=== PATIENT | female | born 2000 | race Caucasian/White ===

== ENCOUNTER → 2019-08-02 17:38 | Outpatient (BNVA) | payer SELFPAY | PROVIDERS: Family Provider Nurse Practitioner Family; Visit Provider Nurse Practitioner Family | DX: R50.9 Fever, unspecified (principal) | CPT/HCPCS: 87804 ==

== ENCOUNTER 2020-08-30 04:34 | Emergency (ER) | payer SELFPAY ==
[2020-08-30 04:45] VITALS: BP 149/98; PULSE 116; RESP 16; TEMP 36.3; O2SAT 99; BMI 29.9
[2020-08-30 04:49] VITALS: PULSE 95
[2020-08-30 04:54] VITALS: PULSE 97; RESP 13; O2SAT 99
[2020-08-30 04:55] VITALS: BP 136/87
--- NOTE | 2020-08-30 05:08 | XR_ITS ---
WS: [id number] Exam: XR foot LT min 3V* [id number] Date/Time of Exam: 08/30/2020 5:15 AM Reason For Exam: injury Findings: The foot was examined in multiple views and reveals no fractures or displacements of bone. No bony a nomalies are noted. The bony elements are in adequate alignment. The joint spaces are smooth and eq uidistant. XR/XR foot LT min 3V* [id number] IMPRESSION: Negative left foot.
--- NOTE | 2020-08-30 05:09 | ED_ITS ---
HPI - Extremity Problem General: Chief complaint: Extremity Problem,Nontraumatic Stated complaint: left foot injury Time Seen by Provider: 08/30/20 04:47 History of Present Illness: HPI Narrative: 19-year-old female who states that she took her foot on a bed rail 3 to 4 days ago. She had initial pain that resolved quickly. She was asymptomatic for 2 to 3 days followed by pain and swelling that started yesterday to the area of the first MTP and just proximal and distal. She awoke with pain this morning, significant enough to make her cry. Tylenol helped relieve some of the pain so that she could get her she wanted to come here for evaluation. MD Complaint: extremity pain and joint pain Onset (ago): day(s) Pain Consistency: constant Location: left and other (foot) Quality: stabbing and aching Radiation: proximal Relieving factors: medication Exacerbating factors: weight bearing Associated symptoms: Deny arthralgias, chest pain, fever(s), rash or short of breath Review of Systems Const: Denies: fever(s) ENMT: Denies: throat pain Card: Denies: chest pain Resp: Denies: dyspnea Skin/Breast: Denies: rash [facility] ED PFSH: Social History (Updated 08/02/19 @ 17:38 by Kirsty Ordoñez LPN) Smoking and tobacco status: current every day smoker Female Reproductive History: Date of last menstrual period: 08/30/20 Physical Exam Const: COMMON NORMALS: no acute distress, patient oriented x3 and healthy appearing HENMT: COMMON NORMALS: normocephalic HEAD & SCALP: normocephalic Eye: COMMON NORMALS: Equal, round and reactive pupils present and EOMs intact bilaterally PUPIL: Yes Equal, round and reactive pupils present Resp: COMMON NORMALS: normal respiratory effort, No use of accessory muscles and clear to auscultation bilaterally AUSCULTATION: clear to auscultation bilaterally Cardio: COMMON NORMALS: regular rate and regular rhythm RATE: regular rate RHYTHM: regular rhythm Extremity: NARRATIVE EXTREMITY EXAM: Exam the left foot reveals significant tenderness over the MTP and just proximal as well as distal. There is a positive grind test as well as pain with any movement of the toe. There is mild swelling noted when compared to the other side. No overt ecchymosis or other rash no ankle joint line tenderness. Neuro: COMMON NORMALS: patient oriented x3 Course Vital Signs: Vital signs: Vital Signs Temperature 97.3 F L 08/30/20 04:45 Pulse Rate 97 08/30/20 04:54 Respiratory Rate 13 08/30/20 04:54 Blood Pressure 136/87 08/30/20 04:55 Pulse Oximetry 99 08/30/20 04:54 MDM - Extremity (Nontraumatic) MDM Narrative: Medical decision making narrative: Straight is negative for fr acture. There is some soft tissue swelling. Difficult to ascertain joint effusion. White blood cell count is 7.8. CRP is only 5.5. Does not appear to be infected. Uric acid level is normal. We will treat with anti- inflammatories, and a postop shoe for a couple of days. Lab Data: Labs: Lab Results 08/30/20 08/30/20 Range/Units 05:20 05:20 WBC 7.8 (4.5-13.0) 10^3/ uL RBC 4.95 (4.1-5.3) 10^6/u L Hgb 14.2 (11.5-15.3) g/dL Hct 43.2 (37.0-47.0) % MCV 87.3 (81-99) fL MCH 28.7 (28.0-34.0) pg MCHC 32.9 (30.0-36.0) g/dL RDW 11.8 L (12.1-15.1) % Plt Count 278 (130-400) 10^3/c mm MPV 9.7 (7.4-10.4) fL Neut % (Auto) 45.4 % Lymph % (Auto) 45.3 % Marin % (Auto) 7.3 % Eos % (Auto) 1.4 % Baso % (Auto) 0.3 % Neut # (Auto) 3.54 (1.8-8.0) 10^3/u L Lymph # (Auto) 3.5 (1.5-6.5) 10^3/u L Marin # (Auto) 0.6 (0.2-0.9) 10^3/u L Eos # (Auto) 0.1 (0.0-0.8) 10^3/u L Baso # (Auto) 0.0 (0.0-0.1) 10^3/u L Nucleated RBC % (a uto) 0 % Nucleated RBCs # 0.0 /100WBC Sodium 139 (136-145) mmol/L Potassium 3.8 (3.5-5.1) mmol/L Chloride 104 (98-107) mmol/L Carbon Dioxide 26 (22-29) mmol/L Anion Gap 12.8 (5-19) BUN 12 (6-20) mg/dL Creatinine 0.7 (0.5-0.9) mg/dL GFR Calculation 106.7 (90-130) mL/min Glucose 88 (65-115) mg/dL Calculated Osmolal ity 287 (285-295) mOsm/k g Uric Acid 4.5 (2.4-5.7) mg/dL Calcium 9.2 (8.5-10.5) mg/dL Total Bilirubin 0.2 (0.15-1.2) mg/dL AST 15 (0-32) U/L ALT 26 (0-33) U/L Alkaline Phosphata se 50 (35-105) IU/L C-Reactive Protein 5.5 H (0.0-4.9) mg/L Total Protein 7.0 (6.6-8.7) g/dL Albumin 4.1 (3.5-5.2) g/dL Globulin 2.9 (1.3-4.6) g/dL Discharge Plan Discharge Patient Disposition: Home Clinical Impression: Contusion of foot, left Qualifiers: Encounter type: initial encounter Qualified Code(s): S90.32XA - Contusion of left foot, initial encounter Condition: Stable Prescriptions: New ketorolac 10 mg tablet 10 mg PO TID PRN (Reason: pain) Qty: 10 RF: 0 Discharge Orders: Discharge ED (Routine); Ordered 08/30/20 Ordered By: Ben Torres Discharge Diet: Advance as tolerated Discharge Activity: Limit activity as instructed Patient Instructions: Foot Contusion (ED) Activity Restrictions/Additional Instructions: You may weight-bear as tolerated in the postoperative shoe until pain begins to improve. Following this, you should wear stiff soled shoes such as a good running shoe or boot for up to a couple of weeks. Follow-up with your physician in 5 days or so for recheck. Medication as directed. Return for fever, worsening swelling despite treatment, worsening pain despite treatment, streaking redness, other concerning symptoms. Coding Level of Care Code ED Litigation Attorney Associate for Chg Fwd Exam Detailed
[2020-08-30 05:25] LABS: Basophils % 0.3 %; Eosinophils # 0.1 10^3/uL (0.0-0.8); Eosinophils % 1.4 %; Hematocrit 43.2 % (37.0-47.0); Hemoglobin 14.2 g/dL (11.5-15.3); Lymphocytes # 3.5 10^3/uL (1.5-6.5); Lymphocytes % 45.3 %; Mean Corpuscular HGB Conc 32.9 g/dL (30.0-36.0); Mean Corpuscular Hemoglobin 28.7 pg (28.0-34.0); Mean Corpuscular Volume 87.3 fL (81-99); Mean Platelet Volume 9.7 fL (7.4-10.4); Monocytes # 0.6 10^3/uL (0.2-0.9); Monocytes % 7.3 %; Neutrophils # 3.54 10^3/uL (1.8-8.0); Neutrophils % 45.4 %; Nucleated Red Blood Cells % 0 %; Platelet Count 278 10^3/cmm (130-400); Red Blood Count 4.95 10^6/uL (4.1-5.3); Red Cell Distribution Width 11.8 % (12.1-15.1); White Blood Count 7.8 10^3/uL (4.5-13.0)
[2020-08-30 05:41] LABS: Alanine Aminotransferase 26 U/L (0-33); Albumin Level 4.1 g/dL (3.5-5.2); Alkaline Phosphatase 50 IU/L (35-105); Anion Gap 12.8 (5-19); Aspartate Amino Transferase 15 U/L (0-32); Blood Urea Nitrogen 12 mg/dL (6-20); C Reactive Protein 5.5 mg/L (0.0-4.9); Calcium 9.2 mg/dL (8.5-10.5); Carbon Dioxide 26 mmol/L (22-29); Chloride 104 mmol/L (98-107); Globulin 2.9 g/dL (1.3-4.6); Glomerular Filtration Rate 106.7 mL/min (90-130); Glucose 88 mg/dL (65-115); Osmolality Calculated 287 mOsm/kg (285-295); Potassium 3.8 mmol/L (3.5-5.1); Sodium 139 mmol/L (136-145); Total Bilirubin 0.2 mg/dL (0.15-1.2); Uric Acid 4.5 mg/dL (2.4-5.7)
[2020-08-30 06:08] LABS: Erythrocyte Sedimentation Rate 19 mm/hr (0-15)
[2020-08-30] MEDS: dexamethasone 4 mg Tablet 10 MG PO (06:13)
[2020-08-30] MEDS: oxyCODONE-APAP 5-325 mg Tablet 2 TAB PO (06:13)
[2020-08-30 06:18] VITALS: BP 110/66; PULSE 80; RESP 12; O2SAT 100
== END 2020-08-30 06:20 | disposition home or self-care (01) ==
PROVIDERS: Emergency Provider Emergency Medicine
DX: S90.32XA Contusion of left foot, initial encounter (principal); F17.210 Nicotine dependence, cigarettes, uncomplicated; W22.8XXA Striking against or struck by other objects, initial encounter
CPT/HCPCS: 73630; 80053; 84550; 85025; 85651; 86140; 99283; J8540

== ENCOUNTER → 2021-01-13 11:29 | Outpatient (BNVA) | payer OTHER, SELFPAY | PROVIDERS: Visit Provider Nurse Practitioner Family | DX: Z20.822 Contact with and (suspected) exposure to COVID-19 (principal); J06.9 Acute upper respiratory infection, unspecified | CPT/HCPCS: 87635 ==

== ENCOUNTER → 2021-12-06 13:31 | Outpatient (BNVA) | payer SELFPAY | PROVIDERS: Visit Provider Registered Nurse Neonatal Intensive Care | DX: R10.11 Right upper quadrant pain (principal) | CPT/HCPCS: 81000 ==

== ENCOUNTER 2021-12-22 15:53 | Emergency (ER) | payer SELFPAY ==
[2021-12-22 16:08] VITALS: BP 134/91; PULSE 94; RESP 12; TEMP 37.2; O2SAT 100; BMI 34.1
--- NOTE | 2021-12-22 16:14 | XRR_ITS ---
PROCEDURE INFORMATION: Exam: XR Chest Exam date and time: 12/22/2021 4:22 PM Age: 21 years old Clinical indication: Other: Fb in throat TECHNIQUE: Imaging protocol: Radiologic exam of the chest. Views: 1 view. COMPARISON: CR Chest 1 [place] [id number] 12/15/2017 11:57 PM FINDINGS: Lungs: Unremarkable. No consolidation. Pleural spaces: Unremarkable. No pleural effusion. No pneumothorax. Heart/Mediastinum: Unremarkable. No cardiomegaly. Bones/joints: Unremarkable. XR/XR chest 1V portable [id number] IMPRESSION: No acute findings. Negative for radiodense foreign body.
--- NOTE | 2021-12-22 16:37 | W.ED.GENADLT ---
HPI - General Adult General: Chief complaint: General Medical Stated complaint: fb in throat Time Seen by Provider: 12/22/21 16:14 History of Present Illness: Patient is a 21-year-old female comes to the ED with concern of foreign body in throat. Patient says she ate a small piece of taco meat and feels like it stuck in the back of her throat. She says is just mildly uncomfortable and she went to urgent care to get evaluated and they sent her here to the ED. She is been able to eat and drink normally and keep all food and fluids down. She has not been vomiting and denies any cough, shortness of breath or trouble breathing. Associated symptoms: Deny chest pain, dyspnea, headache(s), nausea, rash, palpitations or vomiting Review of Systems Const: Denies: fever(s), chills or fatigue Eyes: Denies: change in vision or eye discomfort ENMT: Reports: other (Piece of food stuck in back of throat); Denies: throat pain, odynophagia, nasal discharge or nasal congestion Card: Denies: chest pain, palpitations, edema, swelling of feet/ankles, dyspnea on exertion or orthopnea Resp: Denies: dyspnea, productive cough or non-productive cough GI: Denies: abdominal pain, nausea, vomiting, diarrhea, constipation or hematochezia : Denies: flank pain, dysuria or hematuria Musc: Denies: neck pain, back pain or extremity swelling Skin/Breast: Denies: rash or new lesions Neuro: Denies: headache(s), numbness in extremities or weakness in extremities [facility] ED PFSH: Medical History No pertinent family history Surgical History No pertinent past surgical history Social History Smoking and tobacco status: never smoked Alcohol intake: current Alcohol intake frequency: holidays/special occasions only Female Reproductive History: Date of last menstrual period: 08/30/20 Physical Exam Const: COMMON NORMALS: no acute distress, patient oriented x3 and alert GENERAL APPEARANCE: cooperative and comfortable HENMT: COMMON NORMALS: normocephalic HEAD & SCALP: normocephalic MOUTH: Normal oral and palatal mucosa present THROAT: posterior oropharynx normal, uvula midline, abnormal tonsil bilateral hypertrophy 1+ and other (No foreign body or food seen in back of throat.) Neck/C-Spine: COMMON NORMALS: supple GENERAL: Yes normal visual inspection Resp: COMMON NORMALS: normal respiratory effort, No retractions, No use of accessory muscles and clear to auscultation bilaterally AUSCULTATION: clear to auscultation bilaterally Cardio: COMMON NORMALS: regular rate, regular rhythm, S1 normal heart sound present, S2 normal heart sound present, No gallops present (Cardio), No clicks present (Cardio), No murmurs present (Cardio) and Peripheral pulses 2+ throughout RATE: regular rate RHYTHM: regular rhythm HEART SOUNDS: S1 normal heart sound present and S2 normal heart sound present PERIPHERAL PULSES: Peripheral pulses 2+ throughout GI: COMMON NORMALS: Normal to inspection, nondistended, normoactive bowel sounds present, Soft to palpation, non-tender and no masses PALPATION: Yes Soft to palpation : COMMON NORMALS: Yes no CVA tenderness BLADDER/KIDNEY EXAM: Yes no CVA tenderness Back/Pelvis: COMMON NORMALS: no CVA tenderness Extremity: COMMON NORMALS: normal to inspection Neuro: COMMON NORMALS: patient oriented x3 and moves all extremities SENSORIUM/ORIENTATION: Yes alert Skin: GENERAL SKIN EXAM: dry skin Course Vital Signs: Vital signs: Vital Signs Temperature 99 F 12/22/21 16:08 Pulse Rate 94 12/22/21 16:08 Respiratory Rate 12 12/22/21 16:08 Blood Pressure 134/91 12/22/21 16:08 Pulse Oximetry 100 12/22/21 16:08 [facility] - General Adult Medical Decision Making Patient is a 21-year-old female comes to the ED with concern of foreign body in throat. Patient says she ate a small piece of taco meat and feels like it stuck in the back of her throat. She says is just mildly uncomfortable and she went to urgent care to get evaluated and they sent her here to the ED. She is been able to eat and drink normally and keep all food and fluids down. She has not been vomiting and denies any cough, shortness of breath or trouble breathing. Vitals are stable. Patient appears nontoxic and in no acute distress or pain. Exam is benign and no foreign body seen in back of throat. Chest x-ray showed no acute findings and no radiodense foreign bodies seen. Patient was stable for discharge home and given strict return to ED precautions. Follow-up with your PCP in the next week for reevaluation. Patient understood agree with plan. Lab Data Radiology Impressions Chest X-Ray 12/22/21 16:14 IMPRESSION: No acute findings. Negative for radiodense foreign body. Discharge Plan Discharge Patient Disposition: Home Clinical Impression: Normal exam Condition: Stable Prescriptions: No Action control PO 0RF escitalopram oxalate [Lexapro] 5 mg tablet 5 mg PO DAILY Qty: 30 2RF cyclobenzaprine 10 mg tablet 10 mg PO TID PRN (Reason: muscle spasm) Qty: 30 1RF cyclobenzaprine 5 mg tablet 5 mg PO TID PRN (Reason: muscle spasm) Qty: 15 0RF Discharge Orders: Discharge ED (Routine); Ordered 12/22/21 Ordered By: Luis Fernando Scott Discharge Diet: Regular Discharge Activity: Resume usual activity Activity Restrictions/Additional Instructions: Follow-up with medical provider as directed. Return to the ER or your medical provider if condition worsens. Please read and understand discharge instructions. Thank you for choosing [facility] for your healthcare needs today. Please realize this is an emergency room and that we are providing you with a medical screening exam and this may not be complete and all inclusive of all the testing and or work up that you may need to determine your ailment or severity of your illness. It is very important that you follow up as instructed or that you return to the Emergency Department should you have concerns or if your condition changes or worsens in any way. Coding Level of Care Code ED Supervisor Wire [employer]ope Fabrication for Fernando Mercado Exam Comprehensive
== END 2021-12-22 17:33 | disposition home or self-care (01) ==
PROVIDERS: Emergency Provider Physician Assistant
DX: R09.89 Other specified symptoms and signs involving the circulatory and respiratory systems (principal)
CPT/HCPCS: 71045; 99283

== ENCOUNTER 2021-12-23 20:18 | Emergency (ER) | payer SELFPAY ==
[2021-12-23 20:43] VITALS: BP 117/78; PULSE 93; RESP 16; TEMP 37.2; O2SAT 99; BMI 34.1
--- NOTE | 2021-12-23 22:10 | XRR_ITS ---
PROCEDURE INFORMATION: Exam: XR Soft Tissue Neck Exam date and time: 12/23/2021 10:21 PM Age: 21 years old Clinical indication: Dysphagia / difficulty swallowing; Additional info: Possible foreign body. PT was seen 2 days ago for hamburger getting stuck in throat . PT states it still feels like something is stuck in throat. TECHNIQUE: Imaging protocol: Radiologic exam of the soft tissues of the neck. COMPARISON: CTA Head/Neck [id number] 01/26/2015 2:52 PM FINDINGS: Airway: Unremarkable. No abnormal narrowing. Esophagus: AP and lateral views with ingested enteric contrast also submitted. There is no abnormality demonstrated of the cervical esophagus or the proximal thoracic esophagus. No filling defect demonstrated within the contrast. No evidence of obstruction. Soft tissues: No enlargement of the epiglottis. Bones/joints: Unremarkable. XR/XR soft tissue neck [id number] IMPRESSION: Unremarkable study. No foreign body demonstrated.
[2021-12-23] MEDS: barium sulfate 450 mL Oral Susp PO (23:10)
--- NOTE | 2021-12-23 23:52 | W.ED.GENADLT ---
HPI - General Adult General: Chief complaint: General Medical Stated complaint: N/ said feels like something is stuck in throat Time Seen by Provider: 12/23/21 23:30 History of Present Illness: 21-year-old female comes in today for complaints of difficulty swallowing and anxiety. Associated symptoms: Deny chest pain or dyspnea Review of Systems ENMT: Reports: throat pain Card: Denies: chest pain Resp: Denies: dyspnea Psych: Reports: anxiety PFSH ED PFSH: Medical History No pertinent family history Surgical History No pertinent past surgical history Social History Smoking and tobacco status: never smoked Alcohol intake: current Alcohol intake frequency: holidays/special occasions only Female Reproductive History: Date of last menstrual period: 08/30/20 Physical Exam Const: COMMON NORMALS: alert HENMT: HEAD & SCALP: normal to inspection THROAT: posterior oropharynx abnormal cobblestoning Neck/C-Spine: COMMON NORMALS: full ROM Resp: COMMON NORMALS: normal respiratory effort and clear to auscultation bilaterally AUSCULTATION: clear to auscultation bilaterally Cardio: COMMON NORMALS: regular rate and regular rhythm RATE: regular rate RHYTHM: regular rhythm Extremity: COMMON NORMALS: normal to inspection Neuro: SENSORIUM/ORIENTATION: Yes alert Skin: COMMON NORMALS: no rashes or lesions noted GENERAL SKIN EXAM: no rashes or lesions noted Course Vital Signs: Vital signs: Vital Signs Temperature 98 F 12/24/21 00:40 Pulse Rate 66 12/24/21 00:40 Respiratory Rate 18 12/24/21 00:40 Blood Pressure 126/75 12/24/21 00:40 Pulse Oximetry 96 12/24/21 00:40 MDM - General Adult Medical Decision Making 21-year-old female comes in today for complaints of difficulty swallowing and anxiety. Patient 2 days ago felt like she got something stuck in her throat. She was evaluated in the ER and released home. Patient continues to feel that there is something in the back of her throat. On exam posterior pharynx shows postnasal drip with some cobblestoning. Respirations are even lungs are clear to auscultation. Abdomen soft nontender. Patient is able to eat and drink without difficulty. Differential diagnosis includes but not limited to foreign body, anxiety, pharyngitis. I think patient probably has mild upper respiratory infection or allergy symptoms causing a postnasal drip which is giving her the foreign body sensation. Patient also has discomfort due to her untreated anxiety disorder. Family with patient also believe that patient has a untreated anxiety disorder. We will go ahead and give patient 2 mg of Ativan tonight and a GI cocktail for her discomfort. Patient will be started on sertraline 50 mg daily and lorazepam 0.5 mg daily as needed. Case management was requested to assist patient with primary care follow-up and behavioral health counseling if possible. Lab Data Radiology Impressions Soft Tissue Neck X-Ray 12/23/21 22:10 IMPRESSION: Unremarkable study. No foreign body demonstrated. Discharge Plan Discharge Patient Disposition: Home Clinical Impression: Sensation of foreign body in esophagus, Generalized anxiety disorder with panic attacks Condition: Stable Prescriptions: New sertraline 50 mg tablet 50 mg PO DAILY Qty: 30 0RF lorazepam 0.5 mg tablet 0.5 mg PO DAILY PRN (Reason: anxiety) Qty: 10 0RF cetirizine 10 mg tablet 10 mg PO BID Qty: 20 0RF No Action control PO 0RF escitalopram oxalate [Lexapro] 5 mg tablet 5 mg PO DAILY Qty: 30 2RF cyclobenzaprine 10 mg tablet 10 mg PO TID PRN (Reason: muscle spasm) Qty: 30 1RF cyclobenzaprine 5 mg tablet 5 mg PO TID PRN (Reason: muscle spasm) Qty: 15 0RF Discharge Orders: Discharge ED (Routine); Ordered 12/23/21 Ordered By: Jay Gracia Patient Instructions: Generalized Anxiety Disorder (ED) Activity Restrictions/Additional Instructions: Drink plenty of fluids. Takes cetirizine, Zyrtec, 10 mg twice a day for the next few days to help with drainage in the throat. Drink plenty of water. Take sertraline routinely every day. Follow-up with primary care in 1 week for recheck. Use lorazepam as needed for breakthrough anxiety. Return to ER for concerns such as fever greater than 100.4, difficulty breathing, or new issues. Coding Level of Care Code ED Solid Waste Division Supervisor for Fernando Fwd Exam Detailed
[2021-12-24] MEDS: lidocaine 2% viscous 15 ML, aluminum-mag hydrox-simethicon 30 ML, sucralfate oral liq 1 GM PO (00:04)
[2021-12-24] MEDS: LORazepam 2 mg/mL INJ 1 mL IM (00:12)
[2021-12-24 00:40] VITALS: BP 126/75; PULSE 66; RESP 18; TEMP 36.6; O2SAT 96
--- NOTE | 2022-01-20 16:45 | DCPLANNER ---
late entry - disability case manager had message to speak with patient about getting established with a primary care physician. consulting technical manager unable to speak with patient at this time.
== END 2021-12-24 00:44 | disposition home or self-care (01) ==
PROVIDERS: Emergency Provider Nurse Practitioner Family
DX: R09.89 Other specified symptoms and signs involving the circulatory and respiratory systems (principal); F41.1 Generalized anxiety disorder; F41.0 Panic disorder [episodic paroxysmal anxiety]
CPT/HCPCS: 70360; 96372; 99283; J2060

== ENCOUNTER 2021-12-25 14:11 | Emergency (ER) | payer SELFPAY ==
[2021-12-25 14:37] VITALS: BP 121/77; PULSE 91; RESP 16; TEMP 37.2; O2SAT 98; BMI 34.1
--- NOTE | 2021-12-25 14:57 | PC.NURSE ---
Patient reports she was eating a taco 12/21/20 and felt like the meat was hung up in her throat. Patient reports she is able to chew and swallow and is not vomiting or choking. Patient reports occasionally feeling as though it is harder to breathe. Patient describes occasional pain and possible acid reflux feeling.
--- NOTE | 2021-12-25 15:07 | CTR_ITS ---
PROCEDURE INFORMATION: Exam: CT Neck Without Contrast Exam date and time: 12/25/2021 4:35 PM Age: 21 years old Clinical indication: Throat pain; Additional info: Throat pain and swelling/ fb in throat TECHNIQUE: Imaging protocol: Computed tomography of the neck without contrast. Radiation optimization: All CT scans at this facility use at least one of these dose optimization techniques: automated exposure control; mA and/or kV adjustment per patient size (includes targeted exams where dose is matched to clinical indication); or iterative reconstruction. COMPARISON: CR (NECK, ) 12/23/2021 10:21 PM RADIATION DOSE METRICS: Total DLP (mGy-cm): 421.46 FINDINGS: Nasal cavity: Rightward nasal septal deviation. Pharynx: Unremarkable. No significant tonsillar enlargement. Larynx: Unremarkable. Epiglottis is normal. Prevertebral and retropharyngeal spaces: Unremarkable. Salivary glands: Normal. Glands are normal in size. Thyroid: Normal. No enlarged or calcified nodules. Lymph nodes: Unremarkable. No lymphadenopathy. Trachea: Visualized trachea is unremarkable. Lungs: Unremarkable as visualized. Bones/joints: Unremarkable. No acute fracture. Soft tissues: Unremarkable. No significant soft tissue swelling. CT/CT neck wo con [id number] IMPRESSION: No acute finding.
--- NOTE | 2021-12-25 15:14 | W.ED.SKABFB ---
Documented by User: GEORGIA Tay 12/26/21 07:10 HPI - Skin/Abscess/Foreign Bdy General: Chief complaint: Airway/Esophagus Foreign Body Stated complaint: trouble swallowing Time Seen by Provider: 12/25/21 14:37 History of Present Illness: Patient is a 21-year-old female who comes to the ED with trouble swallowing. Patient was seen here in the ED twice now for same complaint within the past 3 days. She says that approximately 3 days ago she had a piece of some taco meat that she felt was stuck in her throat. She denies any trouble breathing, vomiting and she is able to keep p.o. food and fluids down. She says the discomfort and sensation of a foreign body in her throat is still present. Associated symptoms: Deny chills, fever(s), nausea or vomiting Review of Systems Const: Denies: fever(s), chills or fatigue Eyes: Denies: change in vision or eye discomfort ENMT: Reports: odynophagia (Foreign body sensation in throat); Denies: throat pain, nasal discharge or nasal congestion Card: Denies: chest pain, palpitations, edema, swelling of feet/ankles, dyspnea on exertion or orthopnea Resp: Denies: dyspnea, productive cough or non-productive cough GI: Denies: abdominal pain, nausea, vomiting, diarrhea, constipation or hematochezia : Denies: flank pain, dysuria or hematuria Musc: Denies: neck pain, back pain or extremity swelling Skin/Breast: Denies: rash or new lesions Neuro: Denies: headache(s), numbness in extremities or weakness in extremities FORMERLY [facility], [facility]–1983 ED PFSH: Medical History No pertinent family history Surgical History No pertinent past surgical history Social History Smoking and tobacco status: never smoked Alcohol intake: current Alcohol intake frequency: holidays/special occasions only Female Reproductive History: Date of last menstrual period: 12/25/21 Physical Exam Const: COMMON NORMALS: patient oriented x3 HENMT: COMMON NORMALS: normocephalic HEAD & SCALP: normocephalic MOUTH: Normal oral and palatal mucosa present THROAT: posterior oropharynx normal and uvula midline Neck/C-Spine: COMMON NORMALS: supple GENERAL: Yes normal visual inspection Resp: COMMON NORMALS: normal respiratory effort, No retractions, No use of accessory muscles and clear to auscultation bilaterally AUSCULTATION: clear to auscultation bilaterally Cardio: COMMON NORMALS: regular rate, regular rhythm, S1 normal heart sound present, S2 normal heart sound present, No gallops present (Cardio), No clicks present (Cardio), No murmurs present (Cardio) and Peripheral pulses 2+ throughout RATE: regular rate RHYTHM: regular rhythm HEART SOUNDS: S1 normal heart sound present and S2 normal heart sound present PERIPHERAL PULSES: Peripheral pulses 2+ throughout GI: COMMON NORMALS: Normal to inspection, nondistended, normoactive bowel sounds present, Soft to palpation, non-tender and no masses PALPATION: Yes Soft to palpation : COMMON NORMALS: Yes no CVA tenderness BLADDER/KIDNEY EXAM: Yes no CVA tenderness Back/Pelvis: COMMON NORMALS: no CVA tenderness Extremity: COMMON NORMALS: normal to inspection Neuro: COMMON NORMALS: patient oriented x3 and moves all extremities Skin: GENERAL SKIN EXAM: dry skin Course Vital Signs: Vital signs: Vital Signs Temperature 99.0 F 12/25/21 14:37 Pulse Rate 98 12/25/21 18:17 Respiratory Rate 16 12/25/21 18:17 Blood Pressure 126/88 12/25/21 18:17 Pulse Oximetry 97 12/25/21 18:17 MDM - Skin/Abscess/Foreign Bdy Lab Data I reviewed the patient's lab results. : 12/25/21 15:39 12/25/21 15:[address] 12/25/21 15:07 IMPRESSION: No acute finding. Laboratory Results WBC 8.2 10^3/uL (4.0-10.0) 12/25/21 15:39 RBC 5.18 10^6/uL (4.1-5.3) 12/25/21 15:39 Hgb 14.8 g/dL (11.5-15.3) 12/25/21 15:39 Hct 43.4 % (37.0-47.0) 12/25/21 15:39 MCV 83.8 fl (81-99) 12/25/21 15:39 MCH 28.6 pg (28.0-34.0) 12/25/21 15:39 MCHC 34.1 g/dL (30.0-36.0) 12/25/21 15:39 RDW 11.6 % (12.1-15.1) L 12/25/21 15:39 Plt Count 310 10^3/cmm (130-400) 12/25/21 15:39 MPV 9.4 fL (7.4-10.4) 12/25/21 15:39 Neut % (Auto) 72.5 % 12/25/21 15:39 Lymph % (Auto) 22.9 % 12/25/21 15:39 [place] % (Auto) 4.2 % 12/25/21 15:39 Eos % (Auto) 0.1 % 12/25/21 15:39 Baso % (Auto) 0.2 % 12/25/21 15:39 Neut # (Auto) 5.93 10^3/uL (1.8-7.7) 12/25/21 15:39 Lymph # (Auto) 1.9 10^3/uL (0.8-4.8) 12/25/21 15:39 [place] # (Auto) 0.3 10^3/uL (0.2-0.9) 12/25/21 15:39 Eos # (Auto) 0.0 10^3/uL (0.0-0.8) 12/25/21 15:39 Baso # (Auto) 0.0 10^3/uL (0.0-0.1) 12/25/21 15:39 Nucleated RBC % (auto) 0 % 12/25/21 15:39 Nucleated RBCs # 0.0 /100WBC 12/25/21 15:39 Sodium 137 mmol/L (136-145) 12/25/21 15:39 Potassium 4.1 mmol/L (3.5-5.1) 12/25/21 15:39 Chloride 101 mmol/L (98-107) 12/25/21 15:39 Carbon Dioxide 23 mmol/L (22-29) 12/25/21 15:39 Anion Gap 17.1 (5-19) 12/25/21 15:39 BUN 17 mg/dL (6-20) 12/25/21 15:39 Creatinine 0.7 mg/dL (0.5-0.9) 12/25/21 15:39 GFR Calculation 104.6 mL/min (90-130) 12/25/21 15:39 Glucose 98 mg/dL (65-115) 12/25/21 15:39 Calculated Osmolality 286 mOsm/kg (285-295) 12/25/21 15:39 Calcium 9.6 mg/dL (8.5-10.5) 12/25/21 15:39 Total Bilirubin 0.4 mg/dL (0.15-1.2) 12/25/21 15:39 AST 15 U/L (0-32) 12/25/21 15:39 ALT 14 U/L (0-33) 12/25/21 15:39 Alkaline Phosphatase 59 IU/L (35-105) 12/25/21 15:39 Total Protein 8.0 g/dL (6.6-8.7) 12/25/21 15:39 Albumin 4.6 g/dL (3.5-5.2) 12/25/21 15:39 Globulin 3.4 g/dL (1.3-4.6) 12/25/21 15:39 HCG, Qual Negative (Negative) 12/25/21 15:39 Discharge Plan Discharge Patient Disposition: Home Clinical Impression: Globus sensation Condition: Stable Prescriptions: New Vistaril 50 mg capsule 50 mg PO Q8H PRN (Reason: anxiety) Qty: 20 0RF No Action control PO 0RF escitalopram oxalate [Lexapro] 5 mg tablet 5 mg PO DAILY Qty: 30 2RF cyclobenzaprine 10 mg tablet 10 mg PO TID PRN (Reason: muscle spasm) Qty: 30 1RF cyclobenzaprine 5 mg tablet 5 mg PO TID PRN (Reason: muscle spasm) Qty: 15 0RF sertraline 50 mg tablet 50 mg PO DAILY Qty: 30 0RF lorazepam 0.5 mg tablet 0.5 mg PO DAILY PRN (Reason: anxiety) Qty: 10 0RF cetirizine 10 mg tablet 10 mg PO BID Qty: 20 0RF Discharge Orders: Discharge ED (Routine); Ordered 12/25/21 Ordered By: Orin Grimaldo Sign Out Sign Out Data: Patient Sign Out occurred on 12/25/21 at 17:11. Patient's care was discussed, and care was transferred from to GEORGIA Lockhart. Coding Level of Care Code ED Fishing Guide for Chg Fwd Exam Comprehensive Documented by User: GEORGIA Lockhart 12/25/21 18:04 HPI - Skin/Abscess/Foreign Bdy General: Chief complaint: Airway/Esophagus Foreign Body Stated complaint: trouble swallowing Time Seen by Provider: 12/25/21 14:37 FORMERLY [facility], [facility] ED PFSH: Medical History No pertinent family history Surgical History No pertinent past surgical history Social History Smoking and tobacco status: never smoked Alcohol intake: current Alcohol intake frequency: holidays/special occasions only Course Vital Signs: Vital signs: Vital Signs Temperature 99.0 F 12/25/21 14:37 Pulse Rate 98 12/25/21 18:17 Respiratory Rate 16 12/25/21 18:17 Blood Pressure 126/88 12/25/21 18:17 Pulse Oximetry 97 12/25/21 18:17 MDM - Skin/Abscess/Foreign Bdy Medicial Decision Making Care was assumed from Luis Fernando Scott PA-C. Patient is a 21-year-old female who was presented to our ED numerous times as well as evaluation of [place] ED for symptoms of globus sensation. Patient tells me approximately 5 days ago she felt like a small piece of taco meat possibly got stuck in her throat. She states since that episode she has had uncontrollable anxiety related to this sensation. Patient continues to eat and drink normally and is swallowing normally. She complains of this sensation moving around stating sometimes it will affect more her posterior pharynx then often times lower centered around her hyoid region. She has no complaints of difficulty breathing or swallowing. She states she is driving herself crazy due to her fixation with this sensation. Patient had been prescribed Ativan on a previous ED visit but she states this makes her feel out of my mind . She has tried viscous lidocaine on previous visits and states this did not really seem to help. Patient has had blood work, soft tissue XRs, previous provider today ordered a CT of her neck all which was normal. Ultimately at this time I do not know what else to do for patient from an emergency standpoint. Certainly there is no esophageal obstruction. She has no lesion, mass, airway compromise. At this time I will have case management refer her to ENT for possible visualization of oropharynx/larynx and proximal esophagus. I will try and prescribe her something different for the anxiety component. We did discuss possible acid reflux/GERD etiology and she states she will try OTC medications for this. Lab Data : 12/25/21 15:39 12/25/21 15:[address] 12/25/21 15:07
[2021-12-25 15:53] LABS: Basophils % 0.2 %; Eosinophils % 0.1 %; Hematocrit 43.4 % (37.0-47.0); Hemoglobin 14.8 g/dL (11.5-15.3); Lymphocytes # 1.9 10^3/uL (0.8-4.8); Lymphocytes % 22.9 %; Mean Corpuscular HGB Conc 34.1 g/dL (30.0-36.0); Mean Corpuscular Hemoglobin 28.6 pg (28.0-34.0); Mean Corpuscular Volume 83.8 fl (81-99); Mean Platelet Volume 9.4 fL (7.4-10.4); Monocytes # 0.3 10^3/uL (0.2-0.9); Monocytes % 4.2 %; Neutrophils # 5.93 10^3/uL (1.8-7.7); Neutrophils % 72.5 %; Nucleated Red Blood Cells % 0 %; Platelet Count 310 10^3/cmm (130-400); Red Blood Count 5.18 10^6/uL (4.1-5.3); Red Cell Distribution Width 11.6 % (12.1-15.1); White Blood Count 8.2 10^3/uL (4.0-10.0)
[2021-12-25 16:05] LABS: HCG, Serum Qual Negative (Negative)
[2021-12-25 16:14] LABS: Alanine Aminotransferase 14 U/L (0-33); Albumin Level 4.6 g/dL (3.5-5.2); Alkaline Phosphatase 59 IU/L (35-105); Anion Gap 17.1 (5-19); Aspartate Amino Transferase 15 U/L (0-32); Blood Urea Nitrogen 17 mg/dL (6-20); Calcium 9.6 mg/dL (8.5-10.5); Carbon Dioxide 23 mmol/L (22-29); Chloride 101 mmol/L (98-107); Globulin 3.4 g/dL (1.3-4.6); Glomerular Filtration Rate 104.6 mL/min (90-130); Glucose 98 mg/dL (65-115); Osmolality Calculated 286 mOsm/kg (285-295); Potassium 4.1 mmol/L (3.5-5.1); Sodium 137 mmol/L (136-145); Total Bilirubin 0.4 mg/dL (0.15-1.2)
--- NOTE | 2021-12-25 18:15 | PC.NURSE ---
Patient refused IV Benadryl as she did not want to be drowsy as she feels as though she has been drowsy for days. Patient wanted to be able to go get dinner on her way home before becoming too sleepy. Patient reports she has felt very anxious and overwhelmed since this issue has begun. Educated patient on medications and uses.
[2021-12-25 18:17] VITALS: BP 126/88; PULSE 98; RESP 16; O2SAT 97
--- NOTE | 2021-12-26 04:59 | DCPLANNER ---
Addendum entered by Huong South 01/29/22 15:45: Patient had a follow up appointment scheduled for 12.27.[address] Tamez at ENT - patient did attend appointment. Original Note: transitional care manager had message to schedule a follow up appointment for patient with ENT. transitional care manager sent patients information to the front office staff at ENT. Patients information will be printed and reviewed. Clinic will call patient with appointment information.
== END 2021-12-25 18:21 | disposition home or self-care (01) ==
PROVIDERS: Physician Assistant; Emergency Provider Physician Assistant
DX: F45.8 Other somatoform disorders (principal)
CPT/HCPCS: 70490; 80053; 84703; 85025; 99283

== ENCOUNTER 2022-02-02 09:43 | Day surgery (SDC) | payer SELFPAY ==
[2022-01-31 09:10] VITALS: BMI 32.4
[2022-02-02 10:04] VITALS: BP 131/75; PULSE 82; RESP 18; TEMP 36.4; O2SAT 95
[2022-02-02] MEDS: sodium chloride 0.9% 1,000 ML 30 ML IV (10:09)
[2022-02-02 10:12] LABS: OR HCG Qualitative Urine Negative (Negative)
--- NOTE | 2022-02-02 10:18 | ANES.PREANE2 ---
Pre-Anesthetic Assessment Height/Weight: Height 1.65 m Weight 88.451 kg Temp Pulse Resp BP Pulse Ox O2 Del Method 97.5 F L 82 18 131/75 95 02/02/22 10:04 02/02/22 10:04 02/02/22 10:04 02/02/22 10:04 02/02/22 10:04 02/02/22 10:04 Operation Date: 02/02/22 11:15 Proposed Procedures p EGD Dilation W/ Balloon(Not Applicable) - Tutu Arndt DO Familial anesthetic complications: None Was Beta Rudolph taken within 24 hours: N/A Was Clonidine taken within 24 hours: N/A Last intake: Intake Last Liquid Date 02/01/22 Last Liquid Time 21:30 Last Solid Date 02/01/22 Last Solid Time 17:00 Social Tobacco (vapes), No alcohol and No tobacco Exam alert, oriented x 3, clear to auscultation bilaterally and regular rate & rhythm Airway Mallampati: Class I Dentition: full GI Gastroesophageal Reflux Disease dysphagia Neuropsych Depression Anesthetic Plan ASA status: 2 Anesthesia: MAC Risk of > 500 ml blood loss (7ml/kg in children): No Medications/Allergies Home Medications Medication Instructions Recorded Confirmed Last Taken Type fluticasone propionate 50 2 spray intranasal DAILY PRN nasal 12/27/21 02/02/22 02/01/22 Rx mcg/actuation nasal congestion 12 months #16 grams spray,suspension lorazepam 0.5 mg tablet 0.5 mg PO DAILY PRN anxiety #30 01/25/22 02/02/22 01/26/22 Rx tabs prazosin 2 mg capsule 2 mg PO .HS #30 caps 01/30/22 02/02/22 Unknown Rx sertraline 100 mg tablet (Zoloft) 100 mg PO DAILY #30 tabs 01/30/22 02/02/22 02/01/22 Rx pantoprazole 40 mg tablet,delayed 40 mg PO DAILY 01/31/22 02/02/22 02/01/22 History release Allergies Allergy/AdvReac Type Severity Reaction Status Date / Time No Known Allergies Allergy Verified 02/02/22 09:59 Current Medications Generic Name Dose Route Start Last Admin Trade Name Freq PRN Reason Stop Dose Admin Sodium Chloride 1,000 mls @ 30 mls/hr 02/02/22 10:00 07/28/22 10:09 Sodium Chloride 0.9% IV 02/03/22 09:59 30 mls/hr .Q24H DAMI Administration PFSH Anesthesia Medical History Dysphagia No pertinent family history Psychiatric care Surgical History History of dental surgery No pertinent past surgical history Social History (Updated 01/30/22 @ 13:54 by Kennedy Gruber LPN) Smoking and tobacco status: current every day smoker (vapes with nicotine) e-cigarettes E-Cigarette Details: vaporizer device and with nicotine E-cig/vape details: Refill/Four days. Quit status (tobacco): has tried quititng Number of times tried to quit tobacco: 1 Second hand smoke exposure: Yes Smoking risk assessment/counseling performed?: No Alcohol intake: current Alcohol intake frequency: holidays/special occasions only Alcohol type: beer, wine and hard liquor Desire information about alcohol rehabilitation?: No Counseling given: No Desire information about substance/drug rehabilitation?: No Counseling given: No Female Reproductive History Date of last menstrual period: 12/25/21 Data Anesthesia Cardiac Studies: No Data to Display
--- NOTE | 2022-02-02 10:33 | W.PM.OPSUD ---
Surgery/Procedure H&P Update DATE OF PROCEDURE: February 02, 2022 DATE H&P PERFORMED: 01/26/22 CHANGES TO PREVIOUS DOCUMENTATION: None PLANNED PROCEDURE: Operation Date: 02/02/22 11:15 Proposed Procedures p EGD Dilation W/ Balloon(Not Applicable) - Tutu Arndt DO
[2022-02-02 11:55] VITALS: BP 108/62; PULSE 69; RESP 16; TEMP 36.1; O2SAT 96
[2022-02-02 12:04] VITALS: BP 113/69; PULSE 79; RESP 18; O2SAT 98
--- NOTE | 2022-02-02 12:49 | ANE.PACU2 ---
Inpatient post-anesthesia follow up: Airway intact: Yes Vital signs: Temperature 97.0 F Pulse Rate 79 Respiratory Rate 18 Blood Pressure 113/69 Pulse Oximetry 98 Oxygen Delivery Me thod Room Air Oxygen Flow Rate 3.5 Fraction of Inspir ed Oxygen Hydration adequate: Yes Nausea and vomiting: No Pain level: 1 Mental status: Baseline
== END 2022-02-02 12:31 | disposition home or self-care (01) ==
PROVIDERS: Anesthesiology; PCP Family Medicine; Visit Provider Surgery
DX: R13.10 Dysphagia, unspecified (principal); K21.9 Gastro-esophageal reflux disease without esophagitis; J38.7 Other diseases of larynx; F17.290 Nicotine dependence, other tobacco product, uncomplicated
CPT/HCPCS: 43239; 81025; 84703; 88307; J2704; J7030

== ENCOUNTER 2022-02-17 06:58 | Outpatient (CLI) | payer SELFPAY ==
--- NOTE | 2022-02-17 07:15 | US_ITS ---
WS: [id number] Complete ABDOMINAL ULTRASOUND HISTORY: RUQ pain, post-prandial pain, Positive Bateman's. COMPARISON: 12/16/2014 Liver: 16.4 cm in length. Liver is normal size and echogenicity with no mass or intrahepatic dilatati on. Portal Vein: Normal hepatopetal flow with monophasic waveform. Gallbladder: Normally distended with no gallstones, wall thickening or pericholecystic fluid. Gallbladder wall thickness: 0.2 cm. Pancreas: Normal size and echogenicity. CBD: 0.4 cm. Right kidney: 8.8 cm x 4.5 cm x 4.3 cm. No mass, cortical thickening or hydronephrosis. Left kidney: 10.4 cm x 4.3 cm x 6.4 cm. No mass, cortical thickening or hydronephrosis. Spleen: Normal size and echogenicity. Abdominal aorta and IVC are within normal limits. No ascites. US/US abdomen complete* [id number] IMPRESSION: Normal complete abdomen ultrasound.
== END 2022-02-17 06:59 | disposition home or self-care (01) ==
PROVIDERS: PCP Family Medicine; Visit Provider Family Medicine
DX: R10.11 Right upper quadrant pain (principal)
CPT/HCPCS: 76700

== ENCOUNTER → 2022-03-27 17:26 | Outpatient (BNVA) | payer SELFPAY | PROVIDERS: PCP Family Medicine; Visit Provider Family Medicine | DX: F41.0 Panic disorder [episodic paroxysmal anxiety] (principal); F41.1 Generalized anxiety disorder; G89.29 Other chronic pain; H53.9 Unspecified visual disturbance; R19.8 Other specified symptoms and signs involving the digestive system and abdomen; R42 Dizziness and giddiness; R51.9 Headache, unspecified; F33.1 Major depressive disorder, recurrent, moderate | CPT/HCPCS: 80053; 81000; 82533; 84439; 84443; 85025; 85651; 86140 ==

== ENCOUNTER 2022-04-28 12:05 | Outpatient (CLI) | payer SELFPAY ==
--- NOTE | 2022-04-28 12:00 | CT_ITS ---
WS: [id number] CTA HEAD AND NECK TECHNIQUE: Contrast enhanced CTA of the head and neck with coronal and sagittal reformatted images an d maximum intensity projection (MIP) images. NASCET criteria utilized. CLINICAL INFORMATION: Worsening headaches, vision changes, dizziness COMPARISON: January 26, 2015 DLP: 889.[address] scans at [facility] use at least one of these dose optimization techniques: automated e xposure control; mA and/or kV adjustment per patient size (includes targeted exams where dose is matc hed to clinical indication); or iterative reconstruction. FINDINGS: No evidence of intracranial hemorrhage or mass effect. Ventricular system and basal cistern s are patent. Oswald-white differentiation. Mastoid air cells and partially visualized paranasal sinuse s are well aerated. RIGHT: RIGHT common carotid artery is patent. No significant RIGHT ICA stenosis. ICA is patent to the skull base. LEFT: LEFT common carotid artery is patent. No significant LEFT ICA stenosis. LEFT ICA is patent to t he skull base. INTRACRANIAL CTA: Codominant and patent vertebral arteries bilaterally. Basilar artery is patent. Normal vascularity to the RN OBSERVATION territory bilaterally. ICAs are patent at the skull base. Normal vascularity to the DAVID and MCA territories bilaterally. Pat ent anterior communicating artery. No evidence of proximal flow limiting stenosis or aneurysm. CT/CT angio headneck* [id number] IMPRESSION: 1. No significant ICA stenosis bilaterally. 2. Codominant and patent vertebral arteries bilaterally. 3. No evidence of intracranial flow-limiting stenosis or aneurysm.
[2022-04-28] MEDS: iohexol 350 mg/mL 100 mL Btl IV (12:31)
== END 2022-04-28 12:06 | disposition home or self-care (01) ==
LOC: RAD 12:10
PROVIDERS: PCP Family Medicine; Visit Provider Family Medicine
DX: R51.9 Headache, unspecified (principal); H53.9 Unspecified visual disturbance; R42 Dizziness and giddiness; F41.1 Generalized anxiety disorder; G89.29 Other chronic pain
CPT/HCPCS: 70496; 70498

== ENCOUNTER 2022-07-16 17:07 | Emergency (ER) | payer SELFPAY ==
[2022-07-16] VITALS (9 sets, daily range): BP systolic 103–124; BP diastolic 53–80; PULSE 114; RESP 16; TEMP 36.8–37.7; O2SAT 96–100
[2022-07-16 18:44] LABS: Basophils % 0.1 %; Eosinophils % 0.5 %; Hematocrit 46.2 % (37.0-47.0); Hemoglobin 15.2 g/dL (11.5-15.3); Lymphocytes # 1.1 10^3/uL (0.8-4.8); Mean Corpuscular HGB Conc 32.9 g/dL (30.0-36.0); Mean Corpuscular Hemoglobin 28.4 pg (28.0-34.0); Mean Corpuscular Volume 86.2 fl (81-99); Mean Platelet Volume 9.4 fL (7.4-10.4); Monocytes # 0.5 10^3/uL (0.2-0.9); Monocytes % 5.7 %; Neutrophils # 6.87 10^3/uL (1.8-7.7); Neutrophils % 80.5 %; Nucleated Red Blood Cells % 0 %; Platelet Count 267 10^3/cmm (130-400); Red Blood Count 5.36 10^6/uL (4.1-5.3); Red Cell Distribution Width 11.9 % (12.1-15.1); White Blood Count 8.5 10^3/uL (4.0-10.0)
--- NOTE | 2022-07-16 18:53 | ED_ITS ---
HPI - Abdominal Pain General: Chief Complaint: Abdominal Pain Stated Complaint: Right side is in pain Time Seen by Provider: 07/16/22 18:18 Source: patient Mode of arrival: ambulatory Limitations: no limitations History of Present Illness: Patient presents today for evaluation treatment of right upper quadrant and right-sided abdominal pain, nausea, vomiting, and acute on chronic diarrhea. Patient reports noticing the last few days nearly consistent right upper quadrant pain which now radiates down to her right ovary area wrapping around her right flank, and felt through to her right back. She occasionally has some generalized upper abdominal pain but seems to always originate in the right upper quadrant. Patient reports 2 episodes of vomiting today. Patient has had looser stool but states she typically deals with off-and-on constipation/diarrhea. She does feel like it was a somewhat pale color today. Patient denies any known fevers. She has not had any upper respiratory illnesses recently. Patient does have a history of globus sensation with evaluation with EGD through GI without any acute findings. Patient states for the last 5 days she has been on omeprazole and Pepcid but did not take any of her medications today due to her vomiting and nausea. Patient also states she has not hardly ate or drink anything. Patient states she does drink some Dr. Pepper but has cut back significantly recently. She has minimal to no alcohol use and does not use marijuana with any regularity. Chart review shows she has complained of right upper quadrant pain in the past. She told her primary care doctor about it who did refer her on to GI however, during that time she was also experiencing a globus sensation which appears to be what the GI doctor primarily evaluated. She states she has had an ultrasound of her gallbladder but was negative. Associated Symptoms: Reports change in stool character, constipation (off and on chronic), diarrhea (off and on chronic with episodes today), heartburn, nausea and vomiting (x2 today) Related Data: Date of Last Menstrual Period: 03/15/22 Review of Systems General: Reports: 10 or more systems reviewed and unremarkable except in HPI and below GI: Reports: abdominal pain (RUQ/right side), nausea, vomiting (x2 today), heartburn, diarrhea (off and on chronic with episodes today), constipation (off and on chronic), change in stool character and white/light colored stool PFSH ED PFSH: Medical History Dysphagia No pertinent family history Psychiatric care Surgical History History of dental surgery No pertinent past surgical history Social History Smoking and tobacco status: current every day smoker e-cigarettes E-Cigarette Details: vaporizer device and with nicotine E-cig/vape details: Refill/Four days. Quit status (tobacco): has tried quititng Number of times tried to quit tobacco: 1 Second hand smoke exposure: Yes Smoking risk assessment/counseling performed?: No Alcohol intake: current Alcohol intake frequency: holidays/special occasions only Alcohol type: beer, wine and hard liquor Desire information about alcohol rehabilitation?: No Counseling given: No Desire information about substance/drug rehabilitation?: No Counseling given: No Female Reproductive History: Date of last menstrual period: 03/15/22 Spontaneous abortions: No Physical Exam Const: COMMON NORMALS: no acute distress, patient oriented x3 and alert HENMT: COMMON NORMALS: normocephalic, atraumatic, hearing grossly normal bilaterally and moist oral mucous membranes HEAD & SCALP: normocephalic and atraumatic Eye: COMMON NORMALS: Equal, round and reactive pupils present, EOMs intact bilaterally and conjunctivae normal CONJUNCTIVA: Yes conjunctivae normal PUPIL: Yes Equal, round and reactive pupils present Neck/C-Spine: COMMON NORMALS: full ROM and no JVD Lymph: LYMPHATIC: no lymphadenopathy noted Resp: COMMON NORMALS: normal respiratory effort, No retractions, No use of accessory muscles and clear to auscultation bilaterally AUSCULTATION: clear to auscultation bilaterally Cardio: COMMON NORMALS: no JVD, regular rate and regular rhythm RATE: regular rate RHYTHM: regular rhythm GI: OTHER: Normoactive bowel sounds. Patient with tenderness to her right upper abdomen without guarding or rigidity. Abdomen is soft. : COMMON NORMALS: Yes no CVA tenderness BLADDER/KIDNEY EXAM: Yes no CVA tenderness Back/Pelvis: COMMON NORMALS: no CVA tenderness, no thoracic nor lumbar tenderness and thoraco-lumbar ROM normal Extremity: COMMON NORMALS: normal to inspection, full ROM and capillary refill normal Neuro: COMMON NORMALS: patient oriented x3 SENSORIUM/ORIENTATION: Yes alert Psych: COMMON NORMALS: mental status grossly normal, Normal thought process present, cooperative, normal affect and activity/motor behavior normal THOUGHT PROCESS: Normal thought process present Skin: COMMON NORMALS: no rashes or lesions noted and no wounds GENERAL SKIN EXAM: no rashes or lesions noted Course Vital Signs: Vital signs: Vital Signs Temperature 98.2 F 07/16/22 20:30 Pulse Rate 114 H 07/16/22 17:29 Respiratory Rate 16 07/16/22 20:30 Blood Pressure 107/55 07/16/22 22:00 Pulse Oximetry 99 07/16/22 21:30 Oxygen Delivery Me thod 07/16/22 20:30 MDM - Abdominal Pain Medical Decision Making Dates hisPatient presented to the emergency department today for an acute return of right upper quadrant pain. More intense right upper quadrant pain and she has had before coupled with some vomiting. Patient's lab work is otherwise unremarkable. Her urinalysis did show signs of a potential infection however, there is quite a bit of epithelial cells without findings of nitrites or leukocytes and concerns for contamination so I did request a urine culture be performed. We can follow-up and initiate treatment if necessary after culture finalizes. Right upper quadrant ultrasound was negative today. It is still possible patient is having functional pain of her gallbladder and would recommend HIDA scan. Patient also indicates some signs and symptoms that may be related to IBS. Discussed these with the patient and my recommendation to have them evaluated. I did request a follow-up appointment with GI for her to d iscuss recurrent right upper quadrant issues and to discuss any further evaluation which may be warranted. Patient was given medication to help with nausea as it will be extremely important she stay hydrated. Patient was given strict return precautions for change or worsening in her condition. Differential Diagnosis Likely abdominal pain (Cholelithiasis, cholecystitis, IBS, GERD, pud), acute appendicitis, calculus of kidney, constipation, gastroenteritis and pancreatitis Lab Data 07/16/22 18:35 07/16/22 18:35 Labs/Radiology: Radiology Impressions Abdomen Ultrasound 07/16/22 20:07 IMPRESSION: No acute sonographic findings. Laboratory Results WBC 8.5 10^3/uL (4.0-10.0) 07/16/22 18:35 RBC 5.36 10^6/uL (4.1-5.3) H 07/16/22 18:35 Hgb 15.2 g/dL (11.5-15.3) 07/16/22 18:35 Hct 46.2 % (37.0-47.0) 07/16/22 18:35 MCV 86.2 fl (81-99) 07/16/22 18:35 MCH 28.4 pg (28.0-34.0) 07/16/22 18: MCHC 32.9 g/dL (30.0-36.0) 07/16/22 18:35 RDW 11.9 % (12.1-15.1) L 07/16/22 18:35 Plt Count 267 10^3/cmm (130-400) 07/16/22 18: MPV 9.4 fL (7.4-10.4) 07/16/22 18:35 Neut % (Auto) 80.5 % 07/16/22 18:35 Lymph % (Auto) 13.0 % 07/16/22 18:35 [place] % (Auto) 5.7 % 07/16/22 18:35 Eos % (Auto) 0.5 % 07/16/22 18:35 Baso % (Auto) 0.1 % 07/16/22 18:35 Neut # (Auto) 6.87 10^3/uL (1.8-7.7) 07/16/22 18:35 Lymph # (Auto) 1.1 10^3/uL (0.8-4.8) 07/16/22 18:35 [place] # (Auto) 0.5 10^3/uL (0.2-0.9) 07/16/22 18:35 Eos # (Auto) 0.0 10^3/uL (0.0-0.8) 07/16/22 18:35 Baso # (Auto) 0.0 10^3/uL (0.0-0.1) 07/16/22 18: Nucleated RBC % (auto) 0 % 07/16/22 18: Nucleated RBCs # 0.0 /100WBC 07/16/22 18:35 Sodium 136 mmol/L (136-145) 07/16/22 18: Potassium 3.6 mmol/L (3.5-5.1) 07/16/22 18:35 Chloride 99 mmol/L (98-107) 07/16/22 18:35 Carbon Dioxide 25 mmol/L (22-29) 07/16/22 18:35 Anion Gap 15.6 (5-19) 07/16/22 18:35 BUN 18 mg/dL (6-20) 07/16/22 18:35 Creatinine 0.6 mg/dL (0.5-0.9) 07/16/22 18:35 GFR Calculation 125.0 mL/min (90-130) 07/16/22 18:35 Glucose 91 mg/dL (65-115) 07/16/22 18:35 Calculated Osmolality 283 mOsm/kg (285-295) L 07/16/22 18:35 Calcium 10.0 mg/dL (8.5-10.5) 07/16/22 18:35 Total Bilirubin 0.6 mg/dL (0.15-1.2) 07/16/22 18:35 AST 13 U/L (0-32) 07/16/22 18:35 ALT 12 U/L (0-33) 07/16/22 18:35 Alkaline Phosphatase 84 U/L (35-105) 07/16/22 18:35 Total Protein 8.3 g/dL (6.6-8.7) 07/16/22 18:35 Albumin 4.7 g/dL (3.5-5.2) 07/16/22 18:35 Globulin 3.6 g/dL (1.3-4.6) 07/16/22 18:35 Lipase 14 U/L (13-60) 07/16/22 18:35 HCG, Qual Negative (Negative) 07/16/22 19:10 Urine Color Yellow (Yellow) 07/16/22 19:10 Urine Appearance Sl hazy (CLEAR) A 07/16/22 19:10 Urine pH 5 (5-7) 07/16/22 19:10 Ur Specific [place] 1.025 (1.005-1.030) 07/16/22 19:10 Urine Protein Trace (Negative) 07/16/22 19:10 Urine Glucose (UA) Norm (Normal) 07/16/22 19:10 Urine Ketones 1+ (Negative) H 07/16/22 19:10 Urine Blood 2+ (Negative) H 07/16/22 19:10 Urine Nitrate Negative (Negative) 07/16/22 19:10 Urine Bilirubin 1+ (Negative) H 07/16/22 19:10 Urine Urobilinogen 1 mg/dL (Negative) H 07/16/22 19:10 Ur Leukocyte Esterase Negative (Negative) 07/16/22 19:10 Urine RBC 10-15 /hpf (0-2) H 07/16/22 19:10 Urine WBC 0-4 /hpf (0-5) H 07/16/22 19:10 Ur Squamous Epith Cells 25-40 /hpf (0-5) H 07/16/22 19:10 Amorphous Sediment Not Reportable 07/16/22 19:10 Urine Bacteria 3+ /hpf (NONE) H 07/16/22 19:10 Urine Mucus 3+ /hpf 07/16/22 19:10 Discharge Plan Discharge Patient Disposition: Home Clinical Impression: Abdominal pain, acute, right upper quadrant, Nausea & vomiting Condition: Stable Prescriptions: New ondansetron 4 mg tablet,disintegrating 4 mg PO Q8H 5 Days Qty: 15 0RF No Action fluticasone propionate 50 mcg/actuation spray,suspension 2 spray intranasal DAILY PRN (Reason: nasal congestion) 360 Days Qty: 16 12RF Rx Instructions: administer into each nostril sucralfate [Carafate] 1 gram tablet 1 g PO BID Qty: 60 5RF esomeprazole magnesium [Nexium] 20 mg capsule,delayed release(DR/EC) 20 mg PO DAILY Qty: 60 5RF fluoxetine [Prozac] 10 mg capsule 10 mg PO DAILY Qty: 30 2RF Discharge Orders: Discharge ED (Routine); Ordered 07/16/22 Ordered By: Supriya Bains Referrals: Dick Ayala DO [Primary Care Provider] - Discharge Diet: As Directed Discharge Activity: Increase activity as tolerated Patient Instructions: Irritable Bowel Syndrome (ED), HIDA Scan (DC), Abdominal Pain (ED) Activity Restrictions/Additional Instructions: Lab work today revealed no signs of any acute concerns. Urinalysis had some signs of bacteria which would typically be concerning for urinary tract infection however, it does appear the specimen could have been contaminated as there was quite a bit of epithelial cells present so I have requested a urine culture be performed to further evaluate the true bacterial cause. However, the ultrasound does not show any signs of gallstones or gall sludge at this time. As we discussed, it is possible that the problem has to do with function of the gallbladder and you would require an outpatient test called a HIDA scan. Have included some information about a HIDA scan to you to review. It is possible you also deal with irritable bowel syndrome. I have included some information on this as well. I have asked for referral to GI on your behalf for follow-up to further discuss these possibilities as you may benefit from further evaluation and outpatient management. Continue taking your [place] omeprazole, Pepcid, and sucralfate as prescribed for your other GI symptoms. Return to the emergency department if acutely worsening with high fevers, worsening vomiting, change or worsening of your pain, or inability to tolerate fluids leading to concerns for dehydration. Coding Level of Care Code ED Early Childhood Lead Teacher for [facility] Exam Comprehensive
[2022-07-16] MEDS: pantoprazole 40 mg SDV IVP (19:02)
[2022-07-16] MEDS: sodium chloride 0.9% 1,000 ML 999 ML IV (19:03)
[2022-07-16] MEDS: ondansetron 2 mg/ML SDV 2 mL 4 MG IVP (19:03)
[2022-07-16] MEDS: famotidine 20 mg/2 mL INJ IVP (19:03)
[2022-07-16 19:12] LABS: Alanine Aminotransferase 12 U/L (0-33); Albumin Level 4.7 g/dL (3.5-5.2); Alkaline Phosphatase 84 U/L (35-105); Anion Gap 15.6 (5-19); Aspartate Amino Transferase 13 U/L (0-32); Blood Urea Nitrogen 18 mg/dL (6-20); Carbon Dioxide 25 mmol/L (22-29); Chloride 99 mmol/L (98-107); Creatinine Clr Calc Pharmacy 172.0795; Globulin 3.6 g/dL (1.3-4.6); Glucose 91 mg/dL (65-115); Lipase 14 U/L (13-60); Osmolality Calculated 283 mOsm/kg (285-295); Potassium 3.6 mmol/L (3.5-5.1); Sodium 136 mmol/L (136-145); Total Bilirubin 0.6 mg/dL (0.15-1.2); Total Protein 8.3 g/dL (6.6-8.7)
[2022-07-16 19:20] LABS: HCG Qualitative Urine. Negative (Negative)
[2022-07-16 20:05] LABS: Specific Gravity, Urine 1.025 (1.005-1.030); Urine Appearance SL Hazy (CLEAR); Urine Color Yellow (Yellow); pH Urine 5 (5-7)
[2022-07-16 20:06] LABS: Add Urine Culture? No; Add Urine Microscopic? YES; Bacteria Urine 3+ /hpf; Bilirubin Urine 1+ (Negative); Blood Urine 2+ (Negative); Glucose Urine UA Norm (Normal); Ketones Urine 1+ (Negative); Leukocyte Esterase Urine Negative (Negative); Mucus Urine 3+ /hpf; Nitrate Urine Negative (Negative); Protein Urine Trace (Negative); Squamous Epithelial Cell Urine 25-40 /hpf (0-5); Urobilinogen Urine 1 mg/dL (Negative); WBC Urine 0-4 /hpf (0-5)
--- NOTE | 2022-07-16 20:07 | USR_ITS ---
PROCEDURE INFORMATION: Exam: US Abdomen, Limited; Right Upper Quadrant Exam date and time: 07/16/2022 8:18 PM Age: 21 years old Clinical indication: Abdominal pain; Localized; Right upper quadrant (ruq); Additional info: Ruq pain, n/v, gall bladder eval TECHNIQUE: Imaging protocol: Real time ultrasound of the abdomen with image documentation. Limited exam focused on the right upper quadrant. COMPARISON: US abdomen complete* [id number] 02/17/2022 7:12 AM FINDINGS: Liver: Unremarkable. Gallbladder: No gallstones. No gallbladder wall thickening or pericholecystic fluid. 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 Biliary ducts: Normal. No stones. No dilation. Pancreas: Unremarkable as visualized. Right kidney: No mass. No definite stones. No hydronephrosis. US/US abdomen limited [id number] IMPRESSION: No acute sonographic findings.
[2022-07-16] MEDS: lidocaine 2% viscous 15 ML, aluminum-mag hydrox-simethicon 30 ML, sucralfate oral liq 1 GM PO (20:26)
[2022-07-16] MEDS: ketorolac 30 mg/mL INJ IVP (22:08)
[2022-07-16] MEDS: metoclopramide 5 mg/mL SDV 2 mL 10 MG IVP (22:09)
== END 2022-07-16 22:21 | disposition home or self-care (01) ==
PROVIDERS: Emergency Medicine; Emergency Provider Physician Assistant; PCP Family Medicine
DX: R10.11 Right upper quadrant pain (principal); R11.2 Nausea with vomiting, unspecified; F17.290 Nicotine dependence, other tobacco product, uncomplicated
CPT/HCPCS: 76705; 80053; 81001; 81025; 83690; 85025; 87086; 96361; 96374; 96375; 99285; C9113; J1885; J2405; J2765; J3490; J7030

== ENCOUNTER → 2022-09-12 09:36 | Outpatient (BNVA) | payer OTHER, SELFPAY | PROVIDERS: PCP Family Medicine; Visit Provider Psychiatry & Neurology Psychiatry | DX: F41.0 Panic disorder [episodic paroxysmal anxiety] (principal); F41.1 Generalized anxiety disorder | CPT/HCPCS: 80061; 83036 ==

== ENCOUNTER 2022-12-29 21:04 | Emergency (ER) | payer SELFPAY ==
[2022-11-14 15:43] VITALS: BP 147/102; BMI 35.5
[2022-12-29 21:12] VITALS: BP 136/80; PULSE 88; RESP 18; TEMP 36.9; O2SAT 96; BMI 34.3
--- NOTE | 2022-12-29 21:48 | W.ED.NAVMDI ---
HPI - Nausea/Vomiting/Diarrhea General: Chief complaint: Nausea/Vomiting/Diarrhea Stated complaint: abdomen pain,blurry vision Time Seen by Provider: 12/29/22 21:23 Source: patient Mode of arrival: ambulatory Limitations: no limitations History of Present Illness: Patient is a 22-year-old female presents to ED today with a complaint of chronic nausea, vomiting, diarrhea, abdominal pains. Patient states over the past at least 6 months (although looking at documentation it looks like it has been going on longer than this) she has had diffuse abdominal pains, feelings of bloating and gas, nausea and vomiting worse with eating, and rapid onset episodes of diarrhea. She states any form of eating or drinking seems to stimulate symptoms although things like alcohol and pizza do seem to worsen them. She states she was on a PPI and Carafate for many months without any improvement in her symptoms. Patient has underwent EGD by Dr. Arndt was normal. She has had an ultrasound of her gallbladder which was normal. She was recommended to have a HIDA scan at some point but this has not been completed. There has been talk about possible IBS and referral to GI although this has not been completed either. She has completed a 3-week trial of gluten-free diet without improvement. MD elicited complaint: nausea, vomiting, diarrhea and abdominal pain Onset (ago): month(s) Description of diarrhea: mucus and watery Associated nausea: Yes Associated abdominal pain: Yes Location of pain: Diffuse Radiation: diffuse Pain consistency: intermittent Severity: moderate Quality: cramping Exacerbating factors: eating Relieving factors: none Associated symtoms: Reports bloating and nausea; Denies chest pain, dysuria, fatigue, headache(s), malaise, palpitations or syncope Review of Systems Const: Denies: fever(s), chills, body aches, fatigue or malaise ENMT: Reports: other (throat fb sensation) Card: Denies: chest pain, palpitations, irregular heart rhythm, edema, lightheadedness, syncope, pre-syncope, dyspnea on exertion or orthopnea Resp: Denies: dyspnea GI: Reports: abdominal pain, nausea, vomiting, heartburn, diarrhea, bloating and mucus in stool; Denies: hematemesis, dysphagia, rectal pain, hematochezia or melena : Denies: flank pain, dysuria or hematuria Musc: Denies: neck pain, back pain, extremity pain or joint pain Skin/Breast: Denies: rash Neuro: Denies: headache(s), numbness in extremities, weakness in extremities or sensory changes PFSH ED PFSH: Medical History Dysphagia No pertinent family history Psychiatric care Surgical History History of dental surgery No pertinent past surgical history Social History Smoking and tobacco status: current every day smoker e-cigarettes E-Cigarette Details: vaporizer device and with nicotine E-cig/vape details: Refill/Four days. Quit status (tobacco): has tried quititng Number of times tried to quit tobacco: 1 Second hand smoke exposure: Yes Smoking risk assessment/counseling performed?: No Alcohol intake: current Alcohol intake frequency: holidays/special occasions only Alcohol type: beer, wine and hard liquor Desire information about alcohol rehabilitation?: No Counseling given: No Substance/Drug Use: current Substance/Drug use frequency: other Other substance/drug use details: Hasnt used in quite some time. Edible 2 - 3 months ago. Desire information about substance/drug rehabilitation?: No Counseling given: No Female Reproductive History: Spontaneous abortions: No Physical Exam Const: COMMON NORMALS: no acute distress, patient oriented x3, no limitations, alert and well nourished HENMT: COMMON NORMALS: normocephalic and atraumatic HEAD & SCALP: normocephalic and atraumatic Eye: COMMON NORMALS: no scleral icterus Neck/C-Spine: COMMON NORMALS: full ROM, no lymphadenopathy, supple and no meningeal signs Chest: COMMONS NORMALS: normal inspection of the chest and normal palpation of entire chest wall Resp: COMMON NORMALS: normal respiratory effort and clear to auscultation bilaterally AUSCULTATION: clear to auscultation bilaterally Cardio: COMMON NORMALS: regular rate and regular rhythm RATE: regular rate RHYTHM: regular rhythm GI: COMMON NORMALS: Normal to inspection, nondistended, normoactive bowel sounds present, Soft to palpation, No hepatosplenomegaly present and no masses INSPECTION: Yes normal to inspection AUSCULTATION: Yes normoactive bowel sounds PALPATION: Yes Soft to palpation, Yes Tenderness to palpation present (GI) (RUQ, epigastric ), No Guarding due to palpation present (GI), No Rigid due to palpation and Yes No hepatosplenomegaly present : COMMON NORMALS: Yes no CVA tenderness BLADDER/KIDNEY EXAM: Yes no CVA tenderness Back/Pelvis: COMMON NORMALS: no CVA tenderness Extremity: COMMON NORMALS: normal to inspection GENERAL: Yes normal exam except as noted Neuro: COMMON NORMALS: patient oriented x3 SENSORIUM/ORIENTATION: Yes alert MENINGEAL SIGNS: Yes no meningeal signs Skin: COMMON NORMALS: no rashes or lesions noted GENERAL SKIN EXAM: no rashes or lesions noted Course Vital Signs: Vital signs: Vital Signs Temperature 98.4 F 12/29/22 21:12 Pulse Rate 74 12/29/22 23:02 Respiratory Rate 18 12/29/22 21:12 Blood Pressure 129/68 12/29/22 23:02 Pulse Oximetry 97 12/29/22 23:02 Oxygen Delivery Me thod Room Air 12/29/22 23:02 MDM - Nausea/Vomiting/Diarrhea Medical Decision Making Patient's vital signs are stable. Her blood work is completely unremarkable. At this point I do not feel she needs to undergo any type of emergent imaging as symptoms have been present for many many months. I have zero suspicion for emergent etiology. We will have case management try to get her set up with a GI specialist. We did discuss seeing general surgery here for evaluation for HIDA scan. Lab Data 12/29/22 22:06 12/29/22 22:06 Laboratory Results WBC 6.8 10^3/uL (4.0-10.0) 12/29/22 22:06 RBC 5.14 10^6/uL (4.1-5.3) 12/29/22 22:06 Hgb 14.3 g/dL (11.5-15.3) 12/29/22 22:06 Hct 44.9 % (37.0-47.0) 12/29/22 22:06 MCV 87.4 fl (81-99) 12/29/22 22:06 MCH 27.8 pg (28.0-34.0) L 12/29/22 22:06 MCHC 31.8 g/dL (30.0-36.0) 12/29/22 22:06 RDW 12.1 % (12.1-15.1) 12/29/22 22:06 Plt Count 285 10^3/cmm (130-400) 12/29/22 22:06 MPV 9.5 fL (7.4-10.4) 12/29/22 22:06 Neut % (Auto) 51.9 % 12/29/22 22:06 Lymph % (Auto) 41.3 % 12/29/22 22:06 [place] % (Auto) 5.7 % 12/29/22 22:06 Eos % (Auto) 0.6 % 12/29/22 22:06 Baso % (Auto) 0.4 % 12/29/22 22:06 Neut # (Auto) 3.52 10^3/uL (1.8-7.7) 12/29/22 22:06 Lymph # (Auto) 2.8 10^3/uL (0.8-4.8) 12/29/22 22:06 [place] # (Auto) 0.4 10^3/uL (0.2-0.9) 12/29/22 22:06 Eos # (Auto) 0.0 10^3/uL (0.0-0.8) 12/29/22 22:06 Baso # (Auto) 0.0 10^3/uL (0.0-0.1) 12/29/22 22:06 Nucleated RBC % (auto) 0 % 12/29/22 22:06 Nucleated RBCs # 0.0 /100WBC 12/29/22 22:06 Sodium 138 mmol/L (136-145) 12/29/22 22:06 Potassium 4.3 mmol/L (3.5-5.1) 12/29/22 22:06 Chloride 102 mmol/L (98-107) 12/29/22 22:06 Carbon Dioxide 27 mmol/L (22-29) 12/29/22 22:06 Anion Gap 13.3 (5-19) 12/29/22 22:06 BUN 14 mg/dL (6-20) 12/29/22 22:06 Creatinine 0.7 mg/dL (0.5-0.9) 12/29/22 22:06 GFR Calculation 103.7 mL/min (90-130) 12/29/22 22:06 Glucose 90 mg/dL (65-115) 12/29/22 22:06 Calculated Osmolality 286 mOsm/kg (285-295) 12/29/22 22:06 Calcium 9.7 mg/dL (8.5-10.5) 12/29/22 22:06 Total Bilirubin 0.3 mg/dL (0.15-1.2) 12/29/22 22:06 AST 12 U/L (0-32) 12/29/22 22:06 ALT 11 U/L (0-33) 12/29/22 22:06 Alkaline Phosphatase 83 U/L (35-105) 12/29/22 22:06 Total Protein 7.6 g/dL (6.6-8.7) 12/29/22 22:06 Albumin 4.5 g/dL (3.5-5.2) 12/29/22 22:06 Globulin 3.1 g/dL (1.3-4.6) 12/29/22 22:06 Lipase 19 U/L (13-60) 12/29/22 22:06 HCG, Qual Negative (Negative) 12/29/22 22:06 Urine Color Yellow (Yellow) 12/29/22 22:37 Urine Appearance Sl hazy (CLEAR) A 12/29/22 22:37 Urine pH 6 (5-7) 12/29/22 22:37 Ur Specific [place] 1.020 (1.005-1.030) 12/29/22 22:37 Urine Protein Neg (Negative) 12/29/22 22:37 Urine Glucose (UA) Norm (Normal) 12/29/22 22:37 Urine Ketones 1+ (Negative) H 12/29/22 22:37 Urine Blood Neg (Negative) 12/29/22 22:37 Urine Nitrate Negative (Negative) 12/29/22 22:37 Urine Bilirubin Neg (Negative) 12/29/22 22:37 Urine Urobilinogen 1 mg/dL (Negative) H 12/29/22 22:37 Ur Leukocyte Esterase Negative (Negative) 12/29/22 22:37 Urine RBC 0-4 /hpf (0-2) H 12/29/22 22:37 Urine WBC 0-4 /hpf (0-5) H 12/29/22 22:37 Ur Squamous Epith Cells 5-10 /hpf (0-5) H 12/29/22 22:37 Amorphous Sediment 1+ /hpf 12/29/22 22:37 Urine Bacteria Trace /hpf (NONE) 12/29/22 22:37 Urine Mucus Trace /hpf 12/29/22 22:37 H. pylori IgG Antibody Negative (Negative) 12/29/22 22:06 Discharge Plan Discharge Patient Disposition: Home Clinical Impression: Gastrointestinal complaints Condition: Stable Prescriptions: No Action fluticasone propionate 50 mcg/actuation spray,suspension 2 spray intranasal DAILY PRN (Reason: nasal congestion) 360 Days Qty: 16 12RF Rx Instructions: administer into each nostril sucralfate [Carafate] 1 gram tablet 1 g PO BID Qty: 60 5RF esomeprazole magnesium [Nexium] 20 mg capsule,delayed release(DR/EC) 20 mg PO DAILY Qty: 60 5RF Discharge Orders: Discharge ED (Routine); Ordered 12/29/22 Ordered By: Orin Grimaldo Referrals: Dick Ayala DO [Primary Care Provider] - Activity Restrictions/Additional Instructions: As we discussed I will go ahead and make a referral for a GI specialist for further evaluation. We also discussed referring you to general surgery here for evaluation for a possible HIDA scan. If you have not heard from case management by mid next week you may reach out to them by calling the hospital with extension [phone]. Coding Level of Care Code ED Operations Administrative Assistant for Fernando Mercado
[2022-12-29 22:15] LABS: Basophils % 0.4 %; Eosinophils % 0.6 %; Hematocrit 44.9 % (37.0-47.0); Hemoglobin 14.3 g/dL (11.5-15.3); Lymphocytes # 2.8 10^3/uL (0.8-4.8); Lymphocytes % 41.3 %; Mean Corpuscular HGB Conc 31.8 g/dL (30.0-36.0); Mean Corpuscular Hemoglobin 27.8 pg (28.0-34.0); Mean Corpuscular Volume 87.4 fl (81-99); Mean Platelet Volume 9.5 fL (7.4-10.4); Monocytes # 0.4 10^3/uL (0.2-0.9); Monocytes % 5.7 %; Neutrophils # 3.52 10^3/uL (1.8-7.7); Neutrophils % 51.9 %; Nucleated Red Blood Cells % 0 %; Platelet Count 285 10^3/cmm (130-400); Red Blood Count 5.14 10^6/uL (4.1-5.3); Red Cell Distribution Width 12.1 % (12.1-15.1); White Blood Count 6.8 10^3/uL (4.0-10.0)
[2022-12-29 22:26] LABS: HCG, Serum Qual Negative (Negative)
[2022-12-29 22:32] LABS: Alanine Aminotransferase 11 U/L (0-33); Albumin Level 4.5 g/dL (3.5-5.2); Alkaline Phosphatase 83 U/L (35-105); Anion Gap 13.3 (5-19); Aspartate Amino Transferase 12 U/L (0-32); Blood Urea Nitrogen 14 mg/dL (6-20); Calcium 9.7 mg/dL (8.5-10.5); Carbon Dioxide 27 mmol/L (22-29); Chloride 102 mmol/L (98-107); Globulin 3.1 g/dL (1.3-4.6); Glomerular Filtration Rate 103.7 mL/min (90-130); Glucose 90 mg/dL (65-115); Lipase 19 U/L (13-60); Osmolality Calculated 286 mOsm/kg (285-295); Potassium 4.3 mmol/L (3.5-5.1); Sodium 138 mmol/L (136-145); Total Bilirubin 0.3 mg/dL (0.15-1.2); Total Protein 7.6 g/dL (6.6-8.7)
[2022-12-29 22:39] LABS: H. Pylori IgG Antibody Negative (Negative)
[2022-12-29 23:02] VITALS: BP 129/68; PULSE 74; O2SAT 97
[2022-12-29 23:03] LABS: Add Urine Microscopic? YES; Bilirubin Urine Neg (Negative); Blood Urine Neg (Negative); Glucose Urine UA Norm (Normal); Ketones Urine 1+ (Negative); Leukocyte Esterase Urine Negative (Negative); Nitrate Urine Negative (Negative); Protein Urine Neg (Negative); Urine Appearance SL Hazy (CLEAR); Urine Color Yellow (Yellow); Urobilinogen Urine 1 mg/dL (Negative); pH Urine 6 (5-7)
[2022-12-29 23:04] LABS: Add Urine Culture? No; Amorphous Sediment Urine 1+ /hpf; Bacteria Urine TRACE /hpf; Mucus Urine TRACE /hpf; RBC Urine 0-4 /hpf (0-2); WBC Urine 0-4 /hpf (0-5)
[2022-12-29 23:40] VITALS: BP 128/68; PULSE 64; RESP 18; O2SAT 95
--- NOTE | 2022-12-31 06:00 | DCPLANNER ---
trauma manager had message to schedule a follow up appointment for patient with general surgery. trauma manager sent patients information to the front office staff at general surgery. Patients information will be printed and reviewed. Clinic will call patient with appointment information.
--- NOTE | 2023-01-01 16:49 | PC.SOCIAL ---
Addendum entered by Huong South 01/24/23 13:53: Patient had a follow up appointment scheduled at [facility] General surgery with Dr. Arndt - patient did attend appointment. Addendum entered by Huong South 01/19/23 11:26: manager project called [facility] to confirm that patients information had been received. manager project told that patients information had been received, it will be reviewed, and clinic will call patient with appointment information. Original Note: GI Referral Spoke with patient and she does not have a preference between [facility] and [facility], states whoever can see her the soonest. Referral faxed to Agnes DOWN[facility] at this time.
== END 2022-12-29 22:39 | disposition home or self-care (01) ==
PROVIDERS: Emergency Provider Physician Assistant; PCP Family Medicine
DX: R11.2 Nausea with vomiting, unspecified (principal); R19.7 Diarrhea, unspecified; R10.9 Unspecified abdominal pain
CPT/HCPCS: 36415; 80053; 81001; 83690; 84703; 85025; 86677; 99283

== ENCOUNTER → 2023-03-27 18:16 | Outpatient (BNVA) | payer SELFPAY ==
[2022-11-14 15:43] VITALS: BP 147/102; BMI 35.5
== END ==
PROVIDERS: PCP Family Medicine; Visit Provider Registered Nurse Neonatal Intensive Care
DX: J02.9 Acute pharyngitis, unspecified (principal); Z20.2 Contact with and (suspected) exposure to infections with a predominantly sexual mode of transmission
CPT/HCPCS: 87070; 87491; 87591; 87880

== ENCOUNTER → 2023-09-14 11:40 | Outpatient (BNVA) | payer SELFPAY ==
[2022-11-14 15:43] VITALS: BP 147/102; BMI 35.5
== END ==
PROVIDERS: PCP Family Medicine; Visit Provider Emergency Medicine
DX: R23.3 Spontaneous ecchymoses (principal)
CPT/HCPCS: 80053; 83550; 85007; 85027

== ENCOUNTER → 2023-09-18 15:54 | Outpatient (BNVA) | payer SELFPAY ==
[2022-11-14 15:43] VITALS: BP 147/102; BMI 35.5
== END ==
PROVIDERS: PCP Family Medicine; Visit Provider Family Medicine
DX: Z30.9 Encounter for contraceptive management, unspecified (principal)
CPT/HCPCS: 81025

== ENCOUNTER → 2024-09-29 13:55 | Outpatient (BNVA) | payer SELFPAY ==
[2022-11-14 15:43] VITALS: BP 147/102; BMI 35.5
== END ==
PROVIDERS: PCP Family Medicine; Visit Provider Emergency Medicine
DX: B34.9 Viral infection, unspecified (principal)
CPT/HCPCS: 87400

== ENCOUNTER → 2024-10-01 09:00 | Outpatient (BNVA) | payer OTHER, SELFPAY ==
[2022-11-14 15:43] VITALS: BP 147/102; BMI 35.5
== END ==
PROVIDERS: PCP Family Medicine; Visit Provider Family Medicine
DX: F41.1 Generalized anxiety disorder (principal); F41.0 Panic disorder [episodic paroxysmal anxiety]; F32.1 Major depressive disorder, single episode, moderate; E55.9 Vitamin D deficiency, unspecified
CPT/HCPCS: 80053; 82306; 84439; 84443

== ENCOUNTER 2025-03-19 17:25 | Emergency (ER) | payer OTHER, SELFPAY ==
--- OUTSIDE RECORDS SUMMARY | 2014-05-05 06:45 | XMS_ITS | Continuity of Care Document ---
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 Name Role Phone No Information Unavailable Unavailable Procedures Procedure Date NEW-PROB FOC/STR FORWARD STREP A ASSAY W/OPTIC Advance Directives Directive Yes / No Effective Date File Name No Information Encounters Encounter Description Practice Location Reason(s) For Visit Diagnoses Date Provider Providers Copied on Encounter [facility], [id number], [id number], [place] tel:[phone] No Location No Information 4 No Information NEW-PROB FOC/STR FORWARD [facility], [id number], [id number], [place] tel:[phone] Family Medicine F1 No Information 200 7 No Information Family History Family Member Type Diagnosis Age At Onset No Information Payers Payer name Insurance type Covered alliance party ID Authoriza tion(s) No Information Social History Type Description Quantity Date Captured Comments Sex Female Smoking Status No Information Chief Complaint And Reason For Visit No Information Reason For Referral Reason For Referral No Information History Of Present Illness Encounter Date Complaint History Of Prese nt Illness No Information Functional Status Date Functional Assessmen t No Information Instructions Date Instruction Additional Infor mation No Information Assessments Type Assessment Date No Information Patient Care Teams Name Effective Dates (start - stop) Status Members No Information
[2022-11-14 15:43] VITALS: BP 147/102; BMI 35.5
[2025-03-19 17:27] VITALS: BP 145/95; PULSE 99; RESP 17; TEMP 36.7; O2SAT 98; BMI 39.4
--- OUTSIDE RECORDS SUMMARY | 2025-03-19 17:31 | XMS_ITS | Clinical Summary ---
Author Organization [employer] Address [address] [facility] Attn: [place] [address] Care Team Providers Care Cyber Intel Planner Name Role Phone Atul Vale MD Primary Care Provider [phone] Allergies Active Allergy Reactions Criticality Noted Date Comments Codeine Unknown 09/04/2018 Medications famotidine (PEPCID ORAL) Take by mouth daily. Active calcium carbonate (TUMS ORAL) Take by mouth 1 time daily as needed. Active pantoprazole (PROTONIX) 40 mg Tablet, Delayed Release (E.C.)Indication s:Gastritis, presence of bleeding unspecified, unspecified chronicity, unspecified gastritis type,Irritable bowel syndrome with alternating bowel habits,Globus sensation Take 1 Tablet (40 mg) by mouth two times daily, before breakfast and bedtime. 90 Tablet Active Active Problems Problem Noted Date Diagnosed Date Acute diarrhea 02/21/2023 Swallowing difficulty 02/21/2023 Family History Medical History Relation Name Comments Colon Cancer Neg Hx Social History Tobacco Use Types Packs/Day Years Used Date Smoking Tobacco: Never Smokeless Tobacco: Current Tobacco Cessation:Ready to Q uit: Not Asked; Counseling Given: Not Answered Alcohol Use Standard Drinks/Week Comments No 0 (1 standard drink = 0.6 oz pur e alcohol) Feeling Safe Answer Date Recorded Are you in a relationship wi th someone who hurts you emotionally and/or physically? No 08/30/2023 Comments No Sex and Gender Information Value Date Recorded Sex Assigned at Not on file Legal Sex Female 1:54 AM SCHEDULE ANNOUNCER Gender Identity Not on file Sexual Orientation Not on file Last Filed Vital Signs Vital Sign Reading Time Taken Comments Blood Pressure 117/62 08/30/2023 1:20 PM SCHEDULE ANNOUNCER Pulse 58 08/30/2023 1:20 PM SCHEDULE ANNOUNCER Temperature 36.6 C (97.9 F) 12/22/2021 8:28 PM CDT Respiratory Rate 16 08/30/2023 1:20 PM SCHEDULE ANNOUNCER Oxygen Saturation 100% 08/30/2023 1:20 PM SCHEDULE ANNOUNCER Inhaled Oxygen Concentration - - Weight 97.8 kg (215 lb 9.6 oz) 09/10/2023 10:29 AM SCHEDULE ANNOUNCER Height 165.1 cm (5' 5 ) 09/10/2023 10:29 AM SCHEDULE ANNOUNCER Body Mass Index 35.88 09/10/2023 10:29 AM SCHEDULE ANNOUNCER Plan of Treatment Health Maintenance Due Date Last Done Comments HPV VACCINES (1 - 3-dose series) 10/20/2014 DTAP/TDAP/TD VACCINES (1 - Tdap) 10/20/2018 HEPATITIS B VACCINES (1 of 3 - 19+ 3-dose series) 10/07 CERVICAL CANCER SCREENING 10/20/2020 HPV/Cotest (21-29) 10/20/2020 PAP SMEAR 10/20/2020 INFLUENZA VACCINE (#1) 2025 Advance Directives For more information, please contact: [phone] * Full Code (Latest Code Status on File) Date Activated Date Inactivated Comments 08/30/2023 10:19 AM 08/30/2023 3:54 PM Care Teams Cyber Intel Planner Relationship Specialty Start Date End Date Atul Vale MD [address] [place] [phone] PCP - General Family Practice 07/24/14
--- NOTE | 2025-03-19 17:54 | USR_ITS ---
PROCEDURE INFORMATION: Exam: US Abdomen, Limited; Right Upper Quadrant Exam date and time: 03/19/2025 6:28 PM Age: 24 years old Clinical indication: Abdominal pain; Localized; Right upper quadrant (ruq); Additional info: Ruq pain into back TECHNIQUE: Imaging protocol: Real time ultrasound of the abdomen with image documentation. Limited exam focused on the right upper quadrant. COMPARISON: US abdomen limited [id number] 07/16/2022 8:18 PM FINDINGS: Liver: The liver is mildly enlarged to a length of 19 cm. No liver mass. Gallbladder: The gallbladder is incompletely distended. No gallstones or gallbladder wall thickening. Biliary ducts: No biliary dilatation. Pancreas: Visualized pancreas is normal. Right kidney: The right kidney measures 10.9 cm. No right renal mass or hydronephrosis. US/US gall bladder [id number] IMPRESSION: 1. Hepatomegaly. 2. No acute abnormalities in the right upper quadrant.
--- NOTE | 2025-03-19 18:00 | ED_ITS ---
HPI - Abdominal Pain 2 General: Chief Complaint: Abdominal Pain Stated Complaint: upper rt abd pain Time Seen by Provider: 03/19/25 17:33 Source: patient Mode of arrival: ambulatory Limitations: no limitations History of Present Illness: Patient is a 24-year-old female who presents the emergency department complaining right upper quadrant abdominal pain for the past 2 days. She reports a history of similar in the past, where she was diagnosed with gallstones and was referred to surgery but states she was unable to attend his appointments due to insurance purposes. Pain at that time subsided and she has dealt with it over the years but today it was severe, also is unable to keep anything down. Reporting associated nausea and vomiting, states she has not had normal bowel meant in the past few weeks. She does note that the pain is not specifically exacerbated by food, but vomiting did help her pain quite a bit. Also states that she has been diaphoretic and dizzy secondary to the pain. No other pertinent past medical history reported. MD elicited complaint: abdominal pain Pain Consistency: constant Location: RLQ Severity: similar to previous episodes Quality: stabbing and sharp Radiation: back Relieving factors: vomiting Associated Symptoms: Reports constipation, nausea and vomiting; Denies bloating, change in stool character, chills, diarrhea, dysuria, fever(s) and hematochezia Related Data Previous Rx's ?Medication ?Instructions ?Recorded albuterol sulfate 90 mcg/actuation 2 puff inhalation Q 6H PRN 09/29/24 aerosol inhaler shortness of breath or wheez ing #8.5 grams ewpmzibddsywrro-kbzxqrzsxzkkkqv-KM 5 ml PO Q6H PRN col d symptoms #118 09/29/24 2 mg-30 mg-10 mg/5 mL oral syrup mL (Bromfed DM) drospirenone 3 mg-ethinyl See Rx Instructions .Route 0 10/01/24 estradiol 0.02 mg tablet (Loryna .COMPLEX #84 tabs (28)) duloxetine 30 mg capsule,delayed 30 mg PO DAILY #90 ca ps 10/01/24 release scopolamine base 1 mg over 3 days 1 patch transdermal Q3D PRN nausea 12/03/24 transdermal patch and vomiting #10 ea ondansetron 4 mg disintegrating 4 mg PO TID PRN nausea and 03/19/25 tablet vomiting #30 tabs Allergies Allergy/AdvReac Type Severity Reaction Status Date / Time citalopram AdvReac Severe Anger, Verified 10/01/24 08:13 violent, irritable Review of Systems 2 General: Reports: 10 or more systems reviewed and unremarkable except in HPI and below Const: Reports: change in appetite and diaphoresis; Denies: fever(s), chills or change in weight ENMT: Denies: throat pain or hoarseness Card: Denies: chest pain, palpitations or lightheadedness Resp: Denies: dyspnea, productive cough or wheezing GI: Reports: abdominal pain, nausea, vomiting and constipation; Denies: diarrhea, bloating, change in stool character or hematochezia : Denies: flank pain, difficulty voiding, dysuria, urinary frequency or urinary urgency Musc: Denies: neck pain or back pain Skin/Breast: Denies: rash or new lesions Neuro: Reports: dizziness; Denies: headache(s) PFSH ED 2 PFSH: Medical History Dysphagia No pertinent family history Surgical History H/O endoscopy History of dental surgery No pertinent past surgical history Social History Smoking and tobacco/nicotine status: current every day tobacco/nicotine user e- cigarettes E-Cigarette Details: vaporizer device and with nicotine E-cig/vape details: Refill/Four days. Quit status (tobacco/nicotine): has tried quititng Number of times tried to quit tobacco: 1 Second hand smoke exposure: Yes Alcohol intake: current Alcohol intake frequency: holidays/special occasions only Alcohol type: beer, wine and hard liquor Substance/Drug Use: current Substance/Drug use frequency: other Other substance/drug use details: Hasnt used in quite some time. Edible 2 - 3 months ago. Sexually active: Yes Do you think of yourself as: Straight/Heterosexual Current gender identity: Female Female Reproductive History: Spontaneous abortions: No Physical Exam 2 Const: COMMON NORMALS: no acute distress, patient oriented x3, no limitations, healthy appearing, alert and well nourished GENERAL APPEARANCE: cooperative and comfortable ORIENTATION/CONSCIOUSNESS: Yes awake Neck/C-Spine: COMMON NORMALS: full ROM, supple, no meningeal signs and no JVD Resp: COMMON NORMALS: normal respiratory effort, No retractions, No use of accessory muscles and clear to auscultation bilaterally AUSCULTATION: clear to auscultation bilaterally, no crackles, no rales, no rhonchi and no wheezes Cardio: COMMON NORMALS: no JVD, regular rate, regular rhythm, S1 normal heart sound present, S2 normal heart sound present, No gallops present (Cardio), No clicks present (Cardio), No murmurs present (Cardio), No rub (Cardio) and Peripheral pulses 2+ throughout RATE: regular rate RHYTHM: regular rhythm HEART SOUNDS: S1 normal heart sound present and S2 normal heart sound present PERIPHERAL PULSES: Peripheral pulses 2+ throughout GI: COMMON NORMALS: Normal to inspection, nondistended, normoactive bowel sounds present, Soft to palpation, No hepatosplenomegaly present and no masses AUSCULTATION: Yes normoactive bowel sounds PALPATION: Yes Soft to palpation, Yes Tenderness to palpation present (GI) Details: RUQ, No Guarding due to palpation present (GI), No Rigid due to palpation and Yes No hepatosplenomegaly present RECTAL EXAM: deferred OTHER: Positive Bateman sign : COMMON NORMALS: Yes no CVA tenderness BLADDER/KIDNEY EXAM: Yes no CVA tenderness Back/Pelvis: COMMON NORMALS: no CVA tenderness Extremity: COMMON NORMALS: normal to inspection and full ROM Neuro: COMMON NORMALS: patient oriented x3, moves all extremities, no focal motor deficits and no sensory deficits noted SENSORIUM/ORIENTATION: Yes alert MENINGEAL SIGNS: Yes no meningeal signs Psych: COMMON NORMALS: mental status grossly normal, cooperative and speech normal SPEECH: Yes normal speech Skin: COMMON NORMALS: no rashes or lesions noted GENERAL SKIN EXAM: no rashes or lesions noted Course 2 Vital Signs: Vital signs: Vital Signs Temperature 98.0 F 03/19/25 17:27 Pulse Rate 78 03/19/25 20:08 Respiratory Rate 18 03/19/25 20:08 Blood Pressure 134/82 03/19/25 20:08 Pulse Oximetry 98 03/19/25 20:08 Oxygen Delivery Me thod Room Air 03/19/25 18:29 MDM - Abdominal Pain Medical Decision Making This patient presented with right upper quadrant pain is been vomiting for couple days, history of similar years ago and states that she had previously been set to see a surgeon to consult for gallbladder removal. Reporting pain radiating into her back along with diaphoresis and nausea, but overall nontoxic- appearing on exam. Vitals have been stable throughout ED course. Her labs are reassuring, no elevation in her LFTs or bilirubin level, and ultrasound right upper quadrant does not demonstrate any acute cholecystitis or choledocholithiasis. No other emergent concerns or need to start antibiotics at this time though she will be referred back to general surgery as I suspect biliary colic, overall stable for discharge home and symptoms have been controlled here in the emergency department. Lab Data 03/19/25 18:15 03/19/25 18:15 Labs/Radiology: Radiology Impressions Gallbladder Ultrasound 03/19/25 17:54 IMPRESSION: 1. Hepatomegaly. 2. No acute abnormalities in the right upper quadrant. Laboratory Results WBC 7.92 10^3/uL (3.29-11.43) 03/19/25 18:15 RBC 4.94 10^6/uL (3.85-5.65) 03/19/25 18:15 Hgb 13.70 g/dL (11.27-16.99) 03/19/25 18:15 Hct 41.8 % (36-47) 03/19/25 18:15 MCV 84.6 fl (85-98) L 03/19/25 18:15 MCH 27.7 pg (27-33) 03/19/25 18:15 MCHC 32.8 g/dL (30-55) 03/19/25 18:15 RDW 12.1 % (12.1-15.1) 03/19/25 18:15 Plt Count 322 10^3/cmm (157-399) 03/19/25 18:15 MPV 8.9 fL (7.4-10.4) 03/19/25 18:15 Neut % (Auto) 50.9 % 03/19/25 18:15 Lymph % (Auto) 41.9 % 03/19/25 18:15 Dubois % (Auto) 6.3 % 03/19/25 18:15 Eos % (Auto) 0.5 % 03/19/25 18:15 Baso % (Auto) 0.3 % 03/19/25 18:15 Neut # (Auto) 4.03 10^3/uL (1.8-7.7) 03/19/25 18:15 Lymph # (Auto) 3.3 10^3/uL (0.8-4.8) 03/19/25 18:15 Dubois # (Auto) 0.5 10^3/uL (0.2-0.9) 03/19/25 18:15 Eos # (Auto) 0.0 10^3/uL (0.0-0.8) 03/19/25 18:15 Baso # (Auto) 0.0 10^3/uL (0.0-0.1) 03/19/25 18:15 Nucleated RBC % (auto) 0 % 03/19/25 18:15 Nucleated RBCs # 0.0 /100WBC 03/19/25 18:15 Sodium 139 mmol/L (136-145) 03/19/25 18:15 Potassium 3.9 mmol/L (3.5-5.1) 03/19/25 18:15 Chloride 103 mmol/L (98-107) 03/19/25 18:15 Carbon Dioxide 25 mmol/L (22-29) 03/19/25 18:15 Anion Gap 14.9 (5-19) 03/19/25 18:15 BUN 18 mg/dL (6-20) 03/19/25 18:15 Creatinine 0.7 mg/dL (0.5-0.9) 03/19/25 18:15 GFR Calculation 102.0 mL/min (90-130) 03/19/25 18:15 Glucose 92 mg/dL (65-115) 03/19/25 18:15 Calculated Osmolality 290 mOsm/kg (285-295) 03/19/25 18:15 Calcium 9.8 mg/dL (8.5-10.5) 03/19/25 18:15 Total Bilirubin 0.2 mg/dL (0.15-1.2) 03/19/25 18:15 AST 12 U/L (0-32) 03/19/25 18:15 ALT 13 U/L (0-33) 03/19/25 18:15 Alkaline Phosphatase 64 U/L (35-105) 03/19/25 18:15 Total Protein 8.0 g/dL (6.6-8.7) 03/19/25 18:15 Albumin 4.4 g/dL (3.5-5.2) 03/19/25 18:15 Globulin 3.6 g/dL (1.3-4.6) 03/19/25 18:15 Lipase 64 U/L (13-60) H 03/19/25 18:15 HCG, Qual Negative (Negative) 03/19/25 18:15 Urine Color Yellow (Yellow) 03/19/25 18:20 Urine Appearance Clear (CLEAR) 03/19/25 18:20 Urine pH 6.0 (5-7) 03/19/25 18:20 Ur Specific Watson 1.027 (1.005-1.030) 03/19/25 18:20 Urine Protein Trace (Negative) A 03/19/25 18:20 Urine Glucose (UA) Negative (Normal) 03/19/25 18:20 Urine Ketones Negative (Negative) 03/19/25 18:20 Urine Blood Negative (Negative) 03/19/25 18:20 Urine Nitrate Negative (Negative) 03/19/25 18:20 Urine Bilirubin Negative (Negative) 03/19/25 18:20 Urine Urobilinogen 1.0 mg/dL (Negative) 03/19/25 18:20 Ur Leukocyte Esterase Negative (Negative) 03/19/25 18:20 Urine RBC 0-2 /hpf (0-2) 03/19/25 18:20 Urine WBC 0-5 /hpf (0-5) 03/19/25 18:20 Ur Squamous Epith Cells 0-5 /hpf (0-5) 03/19/25 18:20 Amorphous Sediment Not Reportable 03/19/25 18:20 Urine Bacteria Trace /hpf (NONE) 03/19/25 18:20 Hyaline Casts 0-4 /lpf H 03/19/25 18:20 All radiology interpretation(s) finalized by discharge Discharge Plan Discharge Patient Disposition: Home Clinical Impression: Biliary colic Condition: Stable Prescriptions: New ondansetron 4 mg tablet,disintegrating 4 mg PO TID PRN (Reason: nausea and vomiting) Qty: 30 0RF No Action duloxetine 30 mg capsule,delayed release(DR/EC) 30 mg PO DAILY Qty: 90 3RF drospirenone-ethinyl estradiol [Loryna (28)] 3-0.02 mg tablet See Rx Instructions .ROUTE .COMPLEX Qty: 84 3RF Dose Instruction: Take 1 tablet by mouth once daily Rx Instructions: Take 1 tablet by mouth once daily albuterol sulfate 90 mcg/actuation HFA aerosol inhaler 2 puff inhalation Q6H PRN (Reason: shortness of breath or wheezing) Qty: 8.5 0RF txyxtvwimpwgyrt-vohuzjknp-TE [Bromfed DM] 2-30-10 mg/5 mL syrup 5 ml PO Q6H PRN (Reason: cold symptoms) Qty: 118 0RF scopolamine base 1 mg over 3 days patch 3 day 1 patch transdermal Q3D PRN (Reason: nausea and vomiting) Qty: 10 0RF Discharge Orders: Discharge ED (Routine); Ordered 03/19/25 Ordered By: Anshul Stewart Referrals: Dick Ayala DO [Primary Care Provider, [facility]] Patient Instructions: Abdominal Pain (ED), Patient Portal & Shannan Instructions Activity Restrictions/Additional Instructions: Biliary Colic Discharge Instructions Diagnosis: Biliary colic secondary to symptomatic cholelithiasis, confirmed by reassuring laboratory studies and ultrasound. Clinical Course: The patient is currently stable, with no evidence of acute cholecystitis, cholangitis, or gallstone pancreatitis. Outpatient general surgery referral has been arranged. Discharge Instructions: - Pain Management: - Nonsteroidal anti-inflammatory drugs (NSAIDs) are recommended as first-line analgesia for biliary colic, provided there are no contraindications (e.g., renal insufficiency, peptic ulcer disease, allergy). [1] https://pubmed.ncbi.nlm.nih.gov/23541932 [2] https://pubmed.ncbi.nlm.nih.gov/96732230 [3] https:/ /pubmed.ncbi.nlm.nih.gov/38918958 - Typical regimens include ibuprofen 400?600 mg orally every 6?8 hours as needed, not exceeding 2400 mg/day. Alternative NSAIDs may be used per clinical judgment. - If NSAIDs are contraindicated or insufficient, acetaminophen or short courses of opioids may be considered for severe pain.[1] https://pubmed.ncbi.nlm.nih.gov/82259880 [2] https://pubmed.ncbi.nlm.nih.gov/26033027 [3] https:/ /pubmed.ncbi.nlm.nih.gov/59602978 - Diet: - Advise a low-fat diet to minimize biliary stimulation and reduce the risk of recurrent pain episodes.[1] https://pubmed.ncbi.nlm.nih.gov/71253576 [2] https://pubmed.ncbi.nlm.nih.gov/95318058 - Activity: - No specific restrictions; encourage return to normal activities as tolerated. - Follow-Up: - Outpatient general surgery evaluation is essential and should occur within 1?2 weeks to discuss definitive management (typically laparoscopic cholecystectomy). Timely follow-up reduces the risk of recurrent ED visits and emergent complications.[4] https://pubmed.ncbi.nlm.nih.gov/00065967 - Warning Signs: - Instruct the patient to seek immediate medical attention for any of the following: - Persistent or worsening right upper quadrant or epigastric pain lasting >6 hours - Fever (>38?C/100.4?F) - Jaundice (yellowing of skin or eyes) - New onset vomiting, inability to tolerate oral intake - Signs of sepsis (confusion, hypotension) - These may indicate progression to acute cholecystitis, cholangitis, or pancreatitis, which require urgent evaluation.[1] https://pubmed.ncbi.nlm.nih.gov/37991009 [2] https://pubmed.ncbi.nlm.nih.gov/55406574 [5] https:/ /pubmed.ncbi.nlm.nih.gov/70602407 - Recurrence Risk: - Up to one-third of patients discharged after biliary colic may experience recurrent symptoms or complications if cholecystectomy is delayed. Early elective surgery is the definitive treatment and prevents further episodes.[4] https://pubmed.ncbi.nlm.nih.gov/87448820 [6] https://pubmed.ncbi.nlm.nih.gov/46759428 - Special Considerations: - If the patient has a history of functional gastrointestinal disorders (e.g., irritable bowel syndrome, functional dyspepsia), persistent pain after cholecystectomy is more likely; this should be discussed during surgical consultation.[5] https://pubmed.ncbi.nlm.nih.gov/91588306 [7] https://jamanetwork.com/journals/jamasurgery/fullart icle/10.1001/jamasurg.2024.3080?utm_source=openevidence&utm_medium=referral Summary: The patient has been diagnosed with uncomplicated biliary colic and is stable for outpatient management. Pain control, dietary modification, and prompt surgical follow-up are quinn. The patient has been educated on warning signs of complications and the importance of timely surgical evaluation. References:[1] https://pubmed.ncbi.nlm.nih.gov/69225123 [2] https://pubmed.ncbi.nlm.nih.gov/66433699 [3] https:/ /pubmed.ncbi.nlm.nih.gov/18296640 [4] https://pubmed.ncbi.nlm.nih.gov/75501735 [5] https://pubmed.ncbi.nlm.nih.gov/82372790 [7] https://Tomo Clases.com/journals/jamasurgery/fullarticle/10.1001/jamasur g?utm_source=openevidence&utm_medium=referral [6] https://pubmed.ncbi.nlm.nih.gov/17546068 References * Gallstones: Prevention, Diagnosis, and Treatment https://pubmed.ncbi.nlm.nih.gov/42736247 . Ankit F, [place] H. Seminars in Liver Disease. 2023;44(3):394-404. doi:10.1055/a-8019-3666. * Surgical and Nonsurgical Management of Gallstones https://pubmed.ncbi.nlm.nih.gov/90511233 . Kike S, Rasmussen HG, Ershelly IV, Linda LF, Phillip VK. Danish Family Physician. 2014;89(10):795-802. * Outpatient Management of Biliary Colic: A Prospective Observational Study of Prescribing Habits and Analgesia Effectiveness https://pubmed.ncbi.nlm.nih.gov/09568681 . Akosua QUINTERO, Dwain JE, Rocío A, et al. International Journal of Surgery (Hernandez, Krystle). 2014;12(2):169- 76. doi:10.1016/j.ijsu.2013.12.003. * Hospital Readmission After Emergency Room Visit for Cholelithiasis https://pubmed.ncbi.nlm.nih.gov/85339337 . Kaden TP, Varun FM, Hortensia D, Lay TD, Nba TS. The Journal of Surgical Research. 2015;197(2):318-23. doi:10.1016/j.jss.2015.04.032. * Tailoring Diagnosis and Treatment in Symptomatic Gallstone Disease https://pubmed.ncbi.nlm.nih.gov/72001634 . Girish PURDY, Rowley. The [place] Journal of Surgery. 2021;109(9):832-838. doi:10.1093/bjs/fbyz781. * Emergency Presentations of Acute Biliary Pain: Changing Patterns of Management in a Tertiary [place] https://pubmed.ncbi.nlm.nih.gov/45936027 . Shanti SORENSEN, Jazmin J, Haris SCHUSTER, et al. AN Journal of Surgery. 2018;88(12):9123-4412. doi:10.1111/ans.75307. * Restrictive Strategy vs Usual Care for Cholecystectomy in Patients With Abdominal Pain and Gallstones: 5-Year Follow-Up of the SECURE Randomized Clinical Trial https://jamanetwork.com/journals/jamasurgery/fullarticle/10.1001/jamasurg.2023 .3080?utm_source=openevidence&utm_medium=referral . Rogelio VALADEZ, Nimo JIMÉNEZ, Girish PURDY, et al. JULIO C Surgery. 2023;159(11):7053-0278. doi:10.1001/jamasurg.2023.3080. 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
[2025-03-19 18:21] LABS: Hematocrit 41.8 % (36-47); Hemoglobin 13.70 g/dL (11.27-16.99); Mean Corpuscular HGB Conc 32.8 g/dL (30-55); Mean Corpuscular Hemoglobin 27.7 pg (27-33); Mean Corpuscular Volume 84.6 fl (85-98); Nucleated Red Blood Cells % 0 %; Platelet Count 322 10^3/cmm (157-399); Red Blood Count 4.94 10^6/uL (3.85-5.65); White Blood Count 7.92 10^3/uL (3.29-11.43)
[2025-03-19 18:28] LABS: Glucose Urine UA Negative (Normal); Nitrate Urine Negative (Negative); Specific Gravity, Urine 1.027 (1.005-1.030)
[2025-03-19 18:29] VITALS: BP 132/94; PULSE 82; O2SAT 98
[2025-03-19 18:34] LABS: HCG, Serum Qual Negative (Negative)
[2025-03-19 18:34] LABS: Add Urine Microscopic? YES
[2025-03-19] MEDS: ondansetron 2 mg/ML SDV 2 mL 4 MG IVP (18:39)
[2025-03-19 18:43] LABS: Alanine Aminotransferase 13 U/L (0-33); Albumin Level 4.4 g/dL (3.5-5.2); Alkaline Phosphatase 64 U/L (35-105); Anion Gap 14.9 (5-19); Aspartate Amino Transferase 12 U/L (0-32); Blood Urea Nitrogen 18 mg/dL (6-20); Calcium 9.8 mg/dL (8.5-10.5); Carbon Dioxide 25 mmol/L (22-29); Chloride 103 mmol/L (98-107); Creatinine Clr Calc Pharmacy 144.5893; Globulin 3.6 g/dL (1.3-4.6); Glucose 92 mg/dL (65-115); Lipase 64 U/L (13-60); Osmolality Calculated 290 mOsm/kg (285-295); Potassium 3.9 mmol/L (3.5-5.1); Sodium 139 mmol/L (136-145); Total Protein 8.0 g/dL (6.6-8.7)
[2025-03-19 20:08] VITALS: BP 134/82; PULSE 78; RESP 18; O2SAT 98
--- NOTE | 2025-03-20 13:27 | DCPLANNER ---
messaged gen surg for er f/u
== END 2025-03-19 20:09 | disposition home or self-care (01) ==
PROVIDERS: Emergency Provider Physician Assistant; PCP Family Medicine
DX: K80.50 Calculus of bile duct without cholangitis or cholecystitis without obstruction (principal); F17.290 Nicotine dependence, other tobacco product, uncomplicated
CPT/HCPCS: 36415; 76705; 80053; 81001; 83690; 84703; 85025; 96374; 96375; 99284; J1885; J2405; J7040

== ENCOUNTER 2025-04-07 11:12 | Day surgery (SDC) | payer OTHER, SELFPAY ==
[2022-11-14 15:43] VITALS: BP 147/102; BMI 35.5
[2025-04-07 11:23] VITALS: BMI 38.2
[2025-04-07 11:32] LABS: OR HCG Qualitative Urine Negative (Negative)
--- NOTE | 2025-04-07 11:40 | ANES.PREANE2 ---
Pre-Anesthetic Assessment Height/Weight: Height 1.65 m Weight 104.326 kg O2 Del Method Room Air 04/07/25 11:23 Operation Date: 04/07/25 12:30 Proposed Procedures p EGD EGD with Biopsy 83485 R11.0 R10.11(Not Applicable) - Hugo Velazquez MD Familial anesthetic complications: none Was Beta Rudolph taken within 24 hours: N/A Was Clonidine taken within 24 hours: N/A Last intake: Intake Last Liquid Date 04/06/25 Last Liquid Time 23:00 Last Solid Date 04/06/25 Last Solid Time 21:30 Social No alcohol vapes Exam alert and oriented x 3 Airway Submandibular: within normal limits Cervical ROM: within normal limits Mallampati: Class II Dentition: full History/ROS No significant history except as noted Pulmonary None reported GI Gastroesophageal Reflux Disease Neuropsych Anxiety and Depression Anesthetic Plan ASA status: 2 Anesthesia: Anesthesia Evaluation and MAC Risk of > 500 ml blood loss (7ml/kg in children): No Medications/Allergies Home Medications ?Medication ?Instructions ?Recorded ?Confirmed ?Last Taken ?Type duloxetine 30 mg capsule,delayed 30 mg PO DAILY #90 caps 10/01/24 04/06/25 04/06/25 Rx release scopolamine base 1 mg over 3 days 1 patch transdermal Q3D PRN nausea 12/03/24 04/06/25 Unknown Rx transdermal patch and vomiting #10 ea omeprazole 20 mg capsule,delayed 20 mg PO DAILY 30 days #30 caps 04/03/25 04/06/25 04/06/25 Rx release sucralfate 100 mg/mL oral 10 ml PO BID 6 weeks #840 mL 04/03/25 04/06/25 Unknown Rx suspension drospirenone 3 mg-ethinyl 1 tab PO DAILY 04/06/25 04/06/25 04/06/25 History estradiol 0.02 mg tablet (Per (28)) Allergies Allergy/AdvReac Type Severity Reaction Status Date / Time citalopram AdvReac Severe Anger, Verified 04/06/25 10:29 violent, irritable Current Medications Generic Name Dose Route Start Last Admin Trade Name Freq PRN Reason Stop Dose Admin Sodium Chloride 1,000 mls @ 15 mls/hr 04/07/25 11:14 04/07/25 11:39 Sodium Chloride 0.9% IV 04/08/25 11:13 15 mls/hr .Q24H PRN Administration COLONOSCOPY FLUIDS PFSH Anesthesia Medical History Dysphagia No pertinent family history Surgical History H/O endoscopy History of dental surgery No pertinent past surgical history Social History Smoking and tobacco/nicotine status: current every day tobacco/nicotine user e-cigarettes E-Cigarette Details: vaporizer device and with nicotine E-cig/vape details: Refill/Four days. Quit status (tobacco/nicotine): has tried quititng Number of times tried to quit tobacco: 1 Second hand smoke exposure: Yes Alcohol intake: current Alcohol intake frequency: holidays/special occasions only Alcohol type: beer, wine and hard liquor Substance/Drug Use: current Substance/Drug use frequency: other Other substance/drug use details: Hasnt used in quite some time. Edible 2 - 3 months ago. Sexually active: Yes Do you think of yourself as: Straight/Heterosexual Current gender identity: Female Female Reproductive History Spontaneous abortions: No
--- NOTE | 2025-04-07 11:44 | W.PM.OPSUD ---
Surgery/Procedure H&P Update DATE OF PROCEDURE: April 07, 2025 DATE H&P PERFORMED: 04/03/25 H&P UPDATE INFORMATION: I have reviewed H&P completed within last 30 days, I have examined patient prior to procedure and No changes to prior documentation PLANNED PROCEDURE: Operation Date: 04/07/25 12:30 Proposed Procedures p EGD EGD with Biopsy 71968 R11.0 R10.11(Not Applicable) - Hugo Velazquez MD
[2025-04-07 12:02] VITALS: BP 129/74; PULSE 98; RESP 18; TEMP 36.4; O2SAT 98
[2025-04-07 12:16] VITALS: BP 134/78; PULSE 71; RESP 18; O2SAT 97
--- NOTE | 2025-04-07 12:30 | ANE.PACU2 ---
Inpatient post-anesthesia follow up: Airway intact: Yes Vital signs: Temperature 97.6 F Pulse Rate 71 Respiratory Rate 18 Blood Pressure 134/78 Pulse Oximetry 97 Oxygen Delivery Me thod Room Air Oxygen Flow Rate Fraction of Inspir ed Oxygen Hydration adequate: Yes Nausea and vomiting: No Pain level: 1 Mental status: Baseline
== END 2025-04-07 12:30 | disposition home or self-care (01) ==
PROVIDERS: Student in an Organized Health Care Education/Training Program; PCP Family Medicine; Visit Provider Student in an Organized Health Care Education/Training Program
PROC: 0DJ08ZZ Inspection of Upper Intestinal Tract, Via Natural or Artificial Opening Endoscopic (ICD-10-PCS; principal; 2025-04-07 12:30)
DX: R12 Heartburn (principal); K29.50 Unspecified chronic gastritis without bleeding; K21.9 Gastro-esophageal reflux disease without esophagitis; F41.8 Other specified anxiety disorders; F17.290 Nicotine dependence, other tobacco product, uncomplicated
CPT/HCPCS: 43239; 81025; 88305; 88342; J2704; J7030

== ENCOUNTER 2025-04-22 13:29 | Outpatient (CLI) | payer OTHER, SELFPAY ==
[2022-11-14 15:43] VITALS: BP 147/102; BMI 35.5
[2025-04-22 14:53] LABS: Hepatitis B Surface Antigen Non-Reactive (Nonreactive)
[2025-04-22 15:09] LABS: HIV 1 & 2 Antigen Non-Reactive (Non-Reactiv)
== END 2025-04-22 13:30 | disposition home or self-care (01) ==
PROVIDERS: PCP Family Medicine; Visit Provider Family Medicine
DX: Z01.89 Encounter for other specified special examinations (principal)
CPT/HCPCS: 36415; 86706; 86803; 87340; 87806

== ENCOUNTER 2025-05-05 09:59 | Outpatient (CLI) | payer OTHER, SELFPAY ==
[2022-11-14 15:43] VITALS: BP 147/102; BMI 35.5
--- NOTE | 2025-05-05 10:12 | NM_ITS ---
WS: [id number] NUCLEAR MEDICINE HIDA SCAN WITH GALLBLADDER EJECTION FRACTION HISTORY: RUQ PAIN COMPARISON: Gallbladder ultrasound 03/19/2025 TECHNIQUE: The patient was intravenously injected with 7.6 mCi of TC99m Mebrofenin. Immediate imaging over the right upper quadrant was followed by 5 minute image and additional images for a total of 60 minutes. Liver appears slightly enlarged. Activity identified in the gallbladder at 30 minutes and well distended by 60 minutes. Activity in the proximal small bowel was seen by 20 minutes. Good washout of the radiotracer from the liver by 60 minutes. The patient then drank 8 ounces of Ensure Plus. Ejection fraction at 60 minutes was 74%. Normal GB ejection fraction is 35-75%. Post fatty meal symptoms: None. NM/NM hepatobiliary w phar* [id number] IMPRESSION: 1. Normal HIDA scan. 2. Normal gallbladder ejection fraction.
== END 2025-05-05 10:00 | disposition home or self-care (01) ==
PROVIDERS: PCP Family Medicine; Visit Provider Student in an Organized Health Care Education/Training Program
DX: R10.11 Right upper quadrant pain (principal)
CPT/HCPCS: 78227; A9537

== ENCOUNTER 2025-06-09 15:30 | Outpatient (CLI) | payer OTHER, SELFPAY ==
[2022-11-14 15:43] VITALS: BP 147/102; BMI 35.5
[2025-06-09 16:19] LABS: Hepatitis B Surface Antigen Non-Reactive (Nonreactive)
[2025-06-09 20:42] LABS: HIV 1 & 2 Antigen Non-Reactive (Non-Reactiv)
== END 2025-06-09 15:31 | disposition home or self-care (01) ==
PROVIDERS: PCP Family Medicine; Visit Provider Family Medicine
DX: Z01.89 Encounter for other specified special examinations (principal)
CPT/HCPCS: 36415; 86803; 87340; 87806